=== PATIENT | female | born 1945 | race Caucasian/White ===

== ENCOUNTER 2020-03-12 09:14 | Outpatient (REF) | payer MEDICARE, SELFPAY ==
[2020-03-12 11:52] LABS: Anion Gap 14 (12-20); Blood Urea Nitrogen 16 mg/dL (9-16); Calcium 9.6 mg/dL (8.4-10.2); Carbon Dioxide 27 mmol/L (22-29); Chloride 103 mmol/L (96-108); Estimated Glomerular Filt Rate 52; Glucose Random 93 mg/dL (60-115); Potassium 3.8 mmol/l (3.3-5.1); Sodium 140 mmol/L (135-145)
== END 2020-03-12 09:15 | disposition home or self-care (01) ==
LOC: HO.HMGCLDS 09:14
PROVIDERS: PCP Internal Medicine; Visit Provider Internal Medicine
DX: N18.9 Chronic kidney disease, unspecified (principal)
CPT/HCPCS: 80048

== ENCOUNTER 2020-03-19 15:14 | Outpatient (REF) | payer MEDICARE, SELFPAY ==
[2020-03-19 17:16] LABS: Glucose Urine UA NEG (NEG); Leukocyte Esterase Urine 1+ (NEG); Nitrite Urine NEG (NEG); PH 5.5 (5.0-8.0); Specific Gravity - Urine 1.025 (1.005-1.025); Urine Blood NEG (NEG); Urine Ketones NEG (NEG); Urine Protein NEG (NEG-TRACE)
[2020-03-19 17:23] LABS: Appearance Urine CLEAR; Color Urine YELLOW
[2020-03-19 17:59] LABS: Bacteria Urine TRACE /LPF; RBC Urine 0-2 /HPF (0); Squamous Epithelial Cell Urine 1+ /LPF
== END 2020-03-19 15:15 | disposition home or self-care (01) ==
LOC: HO.HMGCLDS 15:14
PROVIDERS: PCP Internal Medicine; Visit Provider Internal Medicine
DX: I12.9 Hypertensive chronic kidney disease with stage 1 through stage 4 chronic kidney disease, or unspecified chronic kidney disease (principal); N18.9 Chronic kidney disease, unspecified; R35.0 Frequency of micturition
CPT/HCPCS: 81001; 81003

== ENCOUNTER 2020-03-27 07:29 | Outpatient (REF) | payer MEDICARE, SELFPAY ==
[2020-03-27 11:27] LABS: Hematocrit 42.8 % (37-47); Hemoglobin 13.8 g/dl (12.0-16.0); Mean Corpuscular HGB Conc 32.2 g/dl (31.0-35.0); Mean Corpuscular Hemoglobin 28.4 pg (27.0-33.0); Mean Corpuscular Volume 88.1 fL (80-98); Mean Platelet Volume 11.3 fL (9.4-12.3); Platelet Count 308 X10*3/uL (160-400); Red Blood Count 4.86 X10*6/uL (4.20-5.50); Red Cell Distribution Width 13.3 % (11.0-16.0); White Blood Count 6.3 X10*3/uL (4.8-10.8)
[2020-03-27 11:49] LABS: Glucose Urine UA NEG (NEG); Leukocyte Esterase Urine 1+ (NEG); Nitrite Urine NEG (NEG); Urine Blood TRACE (NEG); Urine Ketones NEG (NEG); Urine Protein NEG (NEG-TRACE)
[2020-03-27 11:51] LABS: Appearance Urine HAZY; Color Urine YELLOW
[2020-03-27 12:01] LABS: Alanine Aminotransferase 25 U/L (0-31); Albumin Level 4.3 g/dL (3.5-5.0); Alkaline Phosphatase 93 U/L (39-117); Anion Gap 15 (12-20); Aspartate Amino Transferase 29 U/L (5-31); Bilirubin Total 0.7 mg/dL (0.0-1.0); Blood Urea Nitrogen 21 mg/dL (9-16); Calcium 9.2 mg/dL (8.4-10.2); Carbon Dioxide 22 mmol/L (22-29); Chloride 108 mmol/L (96-108); Cholesterol 158 mg/dL; Estimated Glomerular Filt Rate 57; Glucose Fasting 81 mg/dL (60-99); HDL Cholesterol 58 mg/dL; LDL Cholesterol Calculated 87 mg/dl; Potassium 4.3 mmol/l (3.3-5.1); Sodium 141 mmol/L (135-145); Total Protein 7.1 g/dL (6.5-8.0); Triglycerides 69 mg/dL
[2020-03-27 12:10] LABS: Calcium Oxalate Crystals Urine 4+ /LPF; RBC Urine 0-2 /HPF (0); Squamous Epithelial Cell Urine 2+ /LPF
[2020-03-27 12:11] LABS: Thyroid Stimulating Hormone 1.65 uIU/mL (0.32-4.0)
[2020-03-27 12:13] LABS: Creatinine Urine 58.61 mg/dL; Microalbum/Creatinine Ratio Ur 15.3 ug/mg cr
== END 2020-03-27 07:30 | disposition home or self-care (01) ==
LOC: HO.HMGCLDS 07:29
PROVIDERS: PCP Internal Medicine; Visit Provider Internal Medicine
DX: E78.5 Hyperlipidemia, unspecified (principal); I10 Essential (primary) hypertension; E03.9 Hypothyroidism, unspecified; R73.9 Hyperglycemia, unspecified
CPT/HCPCS: 36415; 80053; 80061; 81001; 82043; 84443; 85027

== ENCOUNTER 2020-04-24 09:04 | Outpatient (REF) | payer MEDICARE, SELFPAY ==
--- NOTE | 2020-04-24 09:05 | XR_ITS ---
EXAMINATION: XR KNEE STANDING BILATERAL XR KNEE, RIGHT XR KNEE, LEFT CLINICAL INFORMATION: Knee pain COMPARISON: Left knee radiographs from 10/22/2019 TECHNIQUE: AP standing view both knees Left knee, 2 views (sunrise and lateral views) Right knee, 2 views FINDINGS: AP standing view The right knee joint spaces are maintained. At the left knee, there is moderate loss of the medial joint space with subarticular sclerosis and marginal osteophytosis. Left knee: The additional views of the left knee show no fracture, malalignment or joint effusion. Small osteophytes and subchondral cystic changes of the mildly degenerated patellofemoral compartment. Minimal marginal osteophyte formation at the lateral compartment. No new findings compared to 10/22/2019. Right knee: Small osteophytes at the mildly degenerated patellofemoral compartment. Negligible osteophyte formation at the medial tibiofemoral compartment. The medial and lateral tibiofemoral joint spaces are maintained. XR/XR knee RT 2V IMPRESSION: * Tricompartmental osteoarthritis of left knee. The arthritis is worst (moderate in degree) at the medial compartment, possibly secondary to, or exacerbated by, an old medial meniscus tear. * At the right knee, there is mild osteoarthritis of the patellofemoral and medial tibiofemoral compartments.
--- NOTE | 2020-04-24 09:05 | XR_ITS ---
EXAMINATION: XR KNEE STANDING BILATERAL XR KNEE, RIGHT XR KNEE, LEFT CLINICAL INFORMATION: Knee pain COMPARISON: Left knee radiographs from 10/22/2019 TECHNIQUE: AP standing view both knees Left knee, 2 views (sunrise and lateral views) Right knee, 2 views FINDINGS: AP standing view The right knee joint spaces are maintained. At the left knee, there is moderate loss of the medial joint space with subarticular sclerosis and marginal osteophytosis. Left knee: The additional views of the left knee show no fracture, malalignment or joint effusion. Small osteophytes and subchondral cystic changes of the mildly degenerated patellofemoral compartment. Minimal marginal osteophyte formation at the lateral compartment. No new findings compared to 10/22/2019. Right knee: Small osteophytes at the mildly degenerated patellofemoral compartment. Negligible osteophyte formation at the medial tibiofemoral compartment. The medial and lateral tibiofemoral joint spaces are maintained. XR/XR knee LT 2V IMPRESSION: * Tricompartmental osteoarthritis of left knee. The arthritis is worst (moderate in degree) at the medial compartment, possibly secondary to, or exacerbated by, an old medial meniscus tear. * At the right knee, there is mild osteoarthritis of the patellofemoral and medial tibiofemoral compartments.
--- NOTE | 2020-04-24 09:05 | XR_ITS ---
EXAMINATION: XR KNEE STANDING BILATERAL XR KNEE, RIGHT XR KNEE, LEFT CLINICAL INFORMATION: Knee pain COMPARISON: Left knee radiographs from 10/22/2019 TECHNIQUE: AP standing view both knees Left knee, 2 views (sunrise and lateral views) Right knee, 2 views FINDINGS: AP standing view The right knee joint spaces are maintained. At the left knee, there is moderate loss of the medial joint space with subarticular sclerosis and marginal osteophytosis. Left knee: The additional views of the left knee show no fracture, malalignment or joint effusion. Small osteophytes and subchondral cystic changes of the mildly degenerated patellofemoral compartment. Minimal marginal osteophyte formation at the lateral compartment. No new findings compared to 10/22/2019. Right knee: Small osteophytes at the mildly degenerated patellofemoral compartment. Negligible osteophyte formation at the medial tibiofemoral compartment. The medial and lateral tibiofemoral joint spaces are maintained. XR/XR knee standing BI IMPRESSION: * Tricompartmental osteoarthritis of left knee. The arthritis is worst (moderate in degree) at the medial compartment, possibly secondary to, or exacerbated by, an old medial meniscus tear. * At the right knee, there is mild osteoarthritis of the patellofemoral and medial tibiofemoral compartments.
== END 2020-04-24 09:05 | disposition home or self-care (01) ==
LOC: HO.HOSX 09:04
PROVIDERS: PCP Internal Medicine; Referring Provider Internal Medicine; Visit Provider Orthopaedic Surgery
DX: M17.12 Unilateral primary osteoarthritis, left knee (principal); M25.561 Pain in right knee
CPT/HCPCS: 20610; 73560; 73565; 99202; J1100

== ENCOUNTER 2020-07-28 08:47 | Outpatient (REF) | payer MEDICARE, SELFPAY ==
[2020-07-28 11:09] LABS: MANUAL DIFF FLAG NO
[2020-07-28 11:16] LABS: Basophils Absolute Auto 0.1 X10*3/uL (0.0-0.2); Basophils Percent Auto 0.8 % (0-2); Eosinophils Absolute Auto 0.3 X10*3/uL (0.0-0.4); Eosinophils Percent Auto 4.3 % (0-4); Hematocrit 41.4 % (37-47); Hemoglobin 13.2 g/dl (12.0-16.0); Imm Gran Abs Auto 0.02 X10*3/uL (0.00-0.03); Imm Gran Pct Auto 0.3 % (0.0-0.4); Lymphocytes Absolute Auto 1.4 X10*3/uL (1.2-4.9); Lymphocytes Percent Auto 21.8 % (20-40); Mean Corpuscular HGB Conc 31.9 g/dl (31.0-35.0); Mean Corpuscular Hemoglobin 28.1 pg (27.0-33.0); Mean Corpuscular Volume 88.3 fL (80-98); Mean Platelet Volume 10.7 fL (9.4-12.3); Monocytes Absolute Auto 0.3 X10*3/uL (0.1-1.2); Neutrophils Absolute Auto 4.4 X10*3/uL (2.0-8.3); Neutrophils Percent Auto 67.8 % (45-73); Platelet Count 286 X10*3/uL (160-400); Red Blood Count 4.69 X10*6/uL (4.20-5.50); Red Cell Distribution Width 13.9 % (11.0-16.0); White Blood Count 6.6 X10*3/uL (4.8-10.8)
[2020-07-28 11:26] LABS: Glucose Urine UA NEG (NEG); Leukocyte Esterase Urine 1+ (NEG); Nitrite Urine NEG (NEG); Specific Gravity - Urine 1.015 (1.005-1.025); UACC Culture Trigger YES; Urine Blood NEG (NEG); Urine Ketones NEG (NEG); Urine Protein NEG (NEG-TRACE)
[2020-07-28 11:28] LABS: Appearance Urine HAZY; Color Urine YELLOW
[2020-07-28 11:43] LABS: Albumin Level 4.2 g/dL (3.5-5.0); Anion Gap 13 (12-20); Blood Urea Nitrogen 25 mg/dL (9-16); Calcium 9.7 mg/dL (8.4-10.2); Carbon Dioxide 30 mmol/L (22-29); Chloride 103 mmol/L (96-108); Estimated Glomerular Filt Rate 50; Iron 81 mcg/dL (30-160); Magnesium 2.3 mg/dL (1.6-2.6); Percent Iron Saturation 24 % (15-50); Phosphorus 2.8 mg/dL (2.7-4.5); Potassium 3.5 mmol/L (3.3-5.1); Sodium 142 mmol/L (135-145); Total Iron Binding Capacity 343 mcg/dL (228-428); Unsaturated Iron Binding 262 ug/dL; Uric Acid 8.8 mg/dL (2.4-5.7)
[2020-07-28 11:46] LABS: Bacteria Urine TRACE /LPF; Squamous Epithelial Cell Urine 2+ /LPF; UACC CULT YES
[2020-07-28 11:47] LABS: Renal w Reflex-LAB USE ONLY Order Verified
[2020-07-28 11:58] LABS: Renal w Reflex Lab Use Only Order verified
[2020-07-28 12:07] LABS: Vitamin D 25-OH Total 31.5 ng/mL (>30)
[2020-07-28 12:08] LABS: Creatinine Urine 88.62 mg/dL; Microalbum/Creatinine Ratio Ur 6.7 ug/mg cr; Total Protein Urine Random < 7 mg/dL (<12)
[2020-07-28 12:37] LABS: Ferritin 107 ng/mL (10-250)
[2020-07-29 16:16] LABS: Calcium (PTHI) 10.2 mg/dL (8.6-10.4); PTHI 47 pg/mL (14-64)
== END 2020-07-28 08:48 | disposition home or self-care (01) ==
LOC: HO.HMGCLDS 08:47
PROVIDERS: PCP Internal Medicine; Visit Provider Internal Medicine Nephrology
DX: I12.9 Hypertensive chronic kidney disease with stage 1 through stage 4 chronic kidney disease, or unspecified chronic kidney disease (principal); N18.9 Chronic kidney disease, unspecified; N28.1 Cyst of kidney, acquired
CPT/HCPCS: 36415; 80051; 81001; 82040; 82043; 82306; 82310; 82565; 82728; 83540; 83735; 83970; 84100; 84156; 84520; 84550; 85025; 87086

== ENCOUNTER → 2020-08-18 08:24 | Outpatient (BNVA) | payer MEDICARE, SELFPAY | PROVIDERS: Visit Provider Orthopaedic Surgery | DX: M17.12 Unilateral primary osteoarthritis, left knee (principal) | CPT/HCPCS: 20610; 99212; J1100 ==

== ENCOUNTER 2020-12-05 07:24 | Outpatient (REF) | payer MEDICARE, SELFPAY ==
[2020-12-05 11:24] LABS: Glucose Urine UA NEG (NEG); Leukocyte Esterase Urine 2+ (NEG); Nitrite Urine NEG (NEG); Urine Blood TRACE (NEG); Urine Ketones NEG (NEG); Urine Protein NEG (NEG-TRACE)
[2020-12-05 11:26] LABS: Appearance Urine HAZY; Color Urine YELLOW
[2020-12-05 11:38] LABS: Bacteria Urine TRACE /LPF; RBC Urine 0-2 /HPF (0); Squamous Epithelial Cell Urine 2+ /LPF
[2020-12-05 11:40] LABS: Hematocrit 39.4 % (37-47); Hemoglobin 12.6 g/dl (12.0-16.0); Mean Corpuscular Hemoglobin 27.8 pg (27.0-33.0); Mean Platelet Volume 10.7 fL (9.4-12.3); Platelet Count 350 X10*3/uL (160-400); Red Blood Count 4.53 X10*6/uL (4.20-5.50); White Blood Count 6.5 X10*3/uL (4.8-10.8)
[2020-12-05 12:11] LABS: Alanine Aminotransferase 12 U/L (0-31); Alkaline Phosphatase 70 U/L (39-117); Anion Gap 13 (12-20); Aspartate Amino Transferase 22 U/L (5-31); Bilirubin Total 0.8 mg/dL (0.0-1.0); Blood Urea Nitrogen 24 mg/dL (9-16); Calcium 9.7 mg/dL (8.4-10.2); Carbon Dioxide 26 mmol/L (22-29); Chloride 106 mmol/L (96-108); Cholesterol 173 mg/dL; Estimated Glomerular Filt Rate 53; Glucose Fasting 98 mg/dL (60-99); HDL Cholesterol 52 mg/dL; LDL Cholesterol Calculated 94 mg/dl; Potassium 3.4 mmol/L (3.3-5.1); Sodium 142 mmol/L (135-145); Total Protein 6.9 g/dL (6.5-8.0); Triglycerides 137 mg/dL
[2020-12-05 12:19] LABS: TSH reflex Free T4 1.72 uIU/mL (0.32-4.0)
== END 2020-12-05 07:25 | disposition home or self-care (01) ==
LOC: HO.HMGCLDS 07:24
PROVIDERS: PCP Internal Medicine; Visit Provider Internal Medicine
DX: I12.9 Hypertensive chronic kidney disease with stage 1 through stage 4 chronic kidney disease, or unspecified chronic kidney disease (principal); N18.9 Chronic kidney disease, unspecified; E78.5 Hyperlipidemia, unspecified
CPT/HCPCS: 36415; 80053; 80061; 81001; 84443; 85027

== ENCOUNTER 2021-01-06 15:02 | Outpatient (REF) | payer MEDICARE, SELFPAY ==
[2021-01-06 17:18] LABS: Anion Gap 15 (12-20); Blood Urea Nitrogen 27 mg/dL (9-16); Calcium 10.3 mg/dL (8.4-10.2); Carbon Dioxide 25 mmol/L (22-29); Chloride 107 mmol/L (96-108); Estimated Glomerular Filt Rate 43; Glucose Random 124 mg/dL (60-115); Potassium 3.7 mmol/L (3.3-5.1); Sodium 143 mmol/L (135-145)
== END 2021-01-06 15:03 | disposition home or self-care (01) ==
LOC: HO.HMGCLDS 15:02
PROVIDERS: PCP Internal Medicine; Visit Provider Internal Medicine
DX: E78.5 Hyperlipidemia, unspecified (principal); I10 Essential (primary) hypertension
CPT/HCPCS: 36415; 80048

== ENCOUNTER 2021-01-09 08:06 | Outpatient (REF) | payer MEDICARE, SELFPAY ==
[2021-01-09 12:34] LABS: Vitamin D 25-OH Total 36.2 ng/mL (>30)
[2021-01-12 13:12] LABS: Calcium (PTHI) 10.1 mg/dL (8.6-10.4); PTHI 62 pg/mL (14-64)
[2021-01-12 19:12] LABS: Calcium, Ionized 5.2 mg/dL (4.8-5.6)
== END 2021-01-09 08:07 | disposition home or self-care (01) ==
LOC: HO.HMGCLDS 08:06
PROVIDERS: PCP Internal Medicine; Visit Provider Nurse Practitioner Family
DX: E83.52 Hypercalcemia (principal)
CPT/HCPCS: 36415; 82306; 82330; 83970

== ENCOUNTER → 2021-05-11 08:10 | Outpatient (BNVA) | payer MEDICARE, SELFPAY | PROVIDERS: Visit Provider Orthopaedic Surgery | DX: M17.12 Unilateral primary osteoarthritis, left knee (principal) | CPT/HCPCS: 99212 ==

== ENCOUNTER 2021-06-06 07:22 | Outpatient (REF) | payer MEDICARE, SELFPAY ==
[2021-06-06 11:15] LABS: Hemoglobin 13.4 g/dl (12.0-16.0); Mean Corpuscular HGB Conc 31.9 g/dl (31.0-35.0); Mean Corpuscular Volume 87.9 fL (80.0-98.0); Mean Platelet Volume 11.1 fL (9.4-12.3); Platelet Count 307 X10*3/uL (160-400); Red Blood Count 4.78 X10*6/uL (4.20-5.50); White Blood Count 7.3 X10*3/uL (4.8-10.8)
[2021-06-06 11:16] LABS: Appearance Urine CLOUDY; Color Urine YELLOW; Glucose Urine UA NEG (NEG); Leukocyte Esterase Urine 2+ (NEG); Nitrite Urine NEG (NEG); PH 5.5 (5.0-8.0); Specific Gravity - Urine 1.025 (1.005-1.025); Urine Blood TRACE (NEG); Urine Ketones NEG (NEG); Urine Protein NEG (NEG-TRACE)
[2021-06-06 11:32] LABS: Amorphous Sediment Urine 2+ /LPF; Bacteria Urine 1+ /LPF; RBC Urine 0-2 /HPF (0); Squamous Epithelial Cell Urine 4+ /LPF
[2021-06-06 11:37] LABS: Alanine Aminotransferase 16 U/L (0-31); Albumin Level 4.1 g/dL (3.5-5.0); Alkaline Phosphatase 61 U/L (39-117); Anion Gap 14 (12-20); Aspartate Amino Transferase 21 U/L (5-31); Bilirubin Total 0.4 mg/dL (0.0-1.0); Blood Urea Nitrogen 22 mg/dL (9-16); Carbon Dioxide 26 mmol/L (22-29); Chloride 105 mmol/L (96-108); Cholesterol 154 mg/dL; Estimated Glomerular Filt Rate 56; Glucose Fasting 90 mg/dL (60-99); HDL Cholesterol 46 mg/dL; LDL Cholesterol Calculated 89 mg/dl; Potassium 3.7 mmol/L (3.3-5.1); Sodium 141 mmol/L (135-145); Total Protein 6.8 g/dL (6.5-8.0); Triglycerides 98 mg/dL
[2021-06-06 12:02] LABS: TSH reflex Free T4 1.69 uIU/mL (0.32-4.0)
== END 2021-06-06 07:23 | disposition home or self-care (01) ==
LOC: HO.HMGCLDS 07:22
PROVIDERS: PCP Internal Medicine; Visit Provider Internal Medicine
DX: I12.9 Hypertensive chronic kidney disease with stage 1 through stage 4 chronic kidney disease, or unspecified chronic kidney disease (principal); N18.9 Chronic kidney disease, unspecified; R35.0 Frequency of micturition; E78.5 Hyperlipidemia, unspecified
CPT/HCPCS: 36415; 80053; 80061; 81001; 84443; 85027

== ENCOUNTER 2021-11-30 07:30 | Outpatient (REF) | payer MEDICARE, SELFPAY ==
[2021-11-30 11:34] LABS: Estimated Average Glucose 111 mg/dL; Hemoglobin A1c % 5.5 %
[2021-11-30 11:37] LABS: Alanine Aminotransferase 18 U/L (0-31); Albumin Level 4.2 g/dL (3.5-5.0); Alkaline Phosphatase 66 U/L (39-117); Anion Gap 12 (12-20); Aspartate Amino Transferase 22 U/L (5-31); Bilirubin Total 0.5 mg/dL (0.0-1.0); Blood Urea Nitrogen 24 mg/dL (9-16); Calcium 9.4 mg/dL (8.4-10.2); Carbon Dioxide 28 mmol/L (22-29); Chloride 106 mmol/L (96-108); Estimated Glomerular Filt Rate 55; Glucose Fasting 99 mg/dL (60-99); Potassium 3.7 mmol/L (3.3-5.1); Sodium 142 mmol/L (135-145); Total Protein 6.8 g/dL (6.5-8.0)
[2021-11-30 12:02] LABS: TSH reflex Free T4 2.14 uIU/mL (0.32-4.0)
== END 2021-11-30 07:31 | disposition home or self-care (01) ==
LOC: HO.HMGCLDS 07:30
PROVIDERS: Visit Provider Internal Medicine
DX: R73.9 Hyperglycemia, unspecified (principal); I12.9 Hypertensive chronic kidney disease with stage 1 through stage 4 chronic kidney disease, or unspecified chronic kidney disease; N18.9 Chronic kidney disease, unspecified
CPT/HCPCS: 36415; 80053; 83036; 84443

== ENCOUNTER 2022-02-02 10:39 | Outpatient (REF) | payer MEDICARE, SELFPAY ==
[2022-02-02 14:47] LABS: TSH reflex Free T4 0.66 uIU/mL (0.32-4.0)
== END 2022-02-02 10:40 | disposition home or self-care (01) ==
LOC: HO.HMGCLDS 10:39
PROVIDERS: PCP Internal Medicine; Visit Provider Internal Medicine
DX: E03.9 Hypothyroidism, unspecified (principal)
CPT/HCPCS: 36415; 84443

== ENCOUNTER 2022-06-03 07:31 | Outpatient (REF) | payer MEDICARE, SELFPAY ==
[2022-06-03 11:17] LABS: Appearance Urine Cloudy; Color Urine Yellow; Glucose Urine UA Negative (Negative); Leukocyte Esterase Urine Moderate (2+) (Negative); Nitrite Urine Negative (Negative); Specific Gravity - Urine 1.015 (1.005-1.025); UMIC TRIGGER UA YES; Urine Blood Negative (Negative); Urine Ketones Negative (Negative); Urine Protein Negative (Neg-Trace)
[2022-06-03 11:19] LABS: MANUAL DIFF FLAG NO
[2022-06-03 11:20] LABS: Bacteria Urine Trace (None Seen); Hyaline Casts Urine 0-2 /LPF (0-2); Squamous Epithelial Cell Urine >20 /HPF (0-2)
[2022-06-03 11:23] LABS: Basophils Percent Auto 0.5 % (0-2); Eosinophils Absolute Auto 0.2 X10*3/uL (0.0-0.4); Eosinophils Percent Auto 3.2 % (0-4); Hematocrit 39.1 % (37.0-47.0); Hemoglobin 12.8 g/dl (12.0-16.0); Imm Gran Abs Auto 0.03 X10*3/uL (0.00-0.03); Imm Gran Pct Auto 0.4 % (0.0-0.4); Lymphocytes Absolute Auto 1.7 X10*3/uL (1.2-4.9); Lymphocytes Percent Auto 22.9 % (20-40); Mean Corpuscular HGB Conc 32.7 g/dl (31.0-35.0); Mean Corpuscular Volume 85.6 fL (80.0-98.0); Mean Platelet Volume 10.3 fL (9.4-12.3); Monocytes Absolute Auto 0.5 X10*3/uL (0.1-1.2); Monocytes Percent Auto 6.1 % (2-11); Neutrophils Percent Auto 66.9 % (45-73); Platelet Count 315 X10*3/uL (160-400); Red Blood Count 4.57 X10*6/uL (4.20-5.50); Red Cell Distribution Width 13.9 % (11.0-16.0); White Blood Count 7.4 X10*3/uL (4.8-10.8)
[2022-06-03 11:45] LABS: Alanine Aminotransferase 12 U/L (0-31); Albumin Level 3.9 g/dL (3.5-5.0); Alkaline Phosphatase 69 U/L (39-117); Anion Gap 10 (12-20); Aspartate Amino Transferase 20 U/L (5-31); Bilirubin Total 0.5 mg/dL (0.0-1.0); Blood Urea Nitrogen 20 mg/dL (9-16); Calcium 9.7 mg/dL (8.4-10.2); Carbon Dioxide 31 mmol/L (22-29); Chloride 103 mmol/L (96-108); Cholesterol 180 mg/dL; Estimated Glomerular Filt Rate > 60; Glucose Fasting 97 mg/dL (60-99); HDL Cholesterol 52 mg/dL; LDL Cholesterol Calculated 105 mg/dl; Potassium 3.4 mmol/L (3.3-5.1); Sodium 141 mmol/L (135-145); Total Protein 6.6 g/dL (6.5-8.0); Triglycerides 118 mg/dL
[2022-06-03 12:04] LABS: TSH reflex Free T4 1.94 uIU/mL (0.32-4.0)
== END 2022-06-03 07:32 | disposition home or self-care (01) ==
LOC: HO.HMGCLDS 07:31
PROVIDERS: PCP Internal Medicine; Visit Provider Internal Medicine
DX: E78.5 Hyperlipidemia, unspecified (principal); I10 Essential (primary) hypertension
CPT/HCPCS: 36415; 80053; 80061; 81001; 84443; 85025

== ENCOUNTER 2022-06-04 12:16 | Outpatient (REF) | payer MEDICARE, SELFPAY ==
[2022-06-04 14:21] LABS: Appearance Urine Clear; Color Urine Yellow; Glucose Urine UA Negative (Negative); Leukocyte Esterase Urine Negative (Negative); Nitrite Urine Negative (Negative); Specific Gravity - Urine 1.015 (1.005-1.025); Urine Blood Negative (Negative); Urine Ketones Negative (Negative); Urine Protein Negative (Neg-Trace)
== END 2022-06-04 12:17 | disposition home or self-care (01) ==
LOC: HO.HMGCLDS 12:16
PROVIDERS: PCP Internal Medicine; Visit Provider Internal Medicine
DX: R82.71 Bacteriuria (principal); I12.9 Hypertensive chronic kidney disease with stage 1 through stage 4 chronic kidney disease, or unspecified chronic kidney disease; N18.9 Chronic kidney disease, unspecified; R35.0 Frequency of micturition
CPT/HCPCS: 81003; 87086

== ENCOUNTER 2022-09-29 10:41 | Outpatient (REF) | payer MEDICARE, SELFPAY | END 2022-09-29 10:42 | disposition home or self-care (01) | LOC: HO.LNP 10:41 | PROVIDERS: PCP Internal Medicine; Visit Provider Surgery | DX: L72.0 Epidermal cyst (principal) | CPT/HCPCS: 11403; 11603; 88304; 88305; 99202 ==

== ENCOUNTER → 2022-10-13 13:07 | Outpatient (BNVA) | payer MEDICARE, SELFPAY | PROVIDERS: PCP Internal Medicine; Visit Provider Surgery | DX: Z48.3 Aftercare following surgery for neoplasm (principal); C44.90 Unspecified malignant neoplasm of skin, unspecified | CPT/HCPCS: 99212 ==

== ENCOUNTER 2022-12-07 06:28 | Outpatient (REF) | payer MEDICARE, SELFPAY ==
[2022-12-07 11:12] LABS: MANUAL DIFF FLAG NO
[2022-12-07 12:01] LABS: Basophils Absolute Auto 0.1 X10*3/uL (0.0-0.2); Basophils Percent Auto 0.7 % (0-2); Eosinophils Absolute Auto 0.3 X10*3/uL (0.0-0.4); Eosinophils Percent Auto 3.4 % (0-4); Hematocrit 39.1 % (37.0-47.0); Hemoglobin 12.4 g/dl (12.0-16.0); Imm Gran Abs Auto 0.04 X10*3/uL (0.00-0.03); Imm Gran Pct Auto 0.5 % (0.0-0.4); Lymphocytes Absolute Auto 1.8 X10*3/uL (1.2-4.9); Lymphocytes Percent Auto 25.1 % (20-40); Mean Corpuscular HGB Conc 31.7 g/dl (31.0-35.0); Mean Corpuscular Hemoglobin 27.8 pg (27.0-33.0); Mean Corpuscular Volume 87.7 fL (80.0-98.0); Mean Platelet Volume 10.5 fL (9.4-12.3); Monocytes Absolute Auto 0.6 X10*3/uL (0.1-1.2); Monocytes Percent Auto 7.8 % (2-11); Neutrophils Absolute Auto 4.6 x10*3/uL (2.0-8.3); Neutrophils Percent Auto 62.5 % (45-73); Platelet Count 331 X10*3/uL (160-400); Red Blood Count 4.46 X10*6/uL (4.20-5.50); Red Cell Distribution Width 14.3 % (11.0-16.0); White Blood Count 7.3 X10*3/uL (4.8-10.8)
[2022-12-07 13:09] LABS: Alanine Aminotransferase 22 U/L (0-31); Albumin Level 3.8 g/dL (3.5-5.0); Alkaline Phosphatase 77 U/L (39-117); Anion Gap 9 (12-20); Aspartate Amino Transferase 30 U/L (5-31); Bilirubin Total 0.5 mg/dL (0.0-1.0); Blood Urea Nitrogen 22 mg/dL (9-16); Calcium 10.2 mg/dL (8.4-10.2); Carbon Dioxide 29 mmol/L (22-29); Chloride 106 mmol/L (96-108); Cholesterol 165 mg/dL; Estimated Glomerular Filt Rate > 60; Glucose Fasting 102 mg/dL (60-99); HDL Cholesterol 46 mg/dL; LDL Cholesterol Calculated 92 mg/dl; Potassium 3.3 mmol/L (3.3-5.1); Sodium 141 mmol/L (135-145); TSH reflex Free T4 2.44 uIU/mL (0.32-4.0); Total Protein 6.9 g/dL (6.5-8.0); Triglycerides 139 mg/dL
== END 2022-12-07 06:29 | disposition home or self-care (01) ==
LOC: HO.HMGCLDS 06:28
PROVIDERS: PCP Internal Medicine; Visit Provider Internal Medicine
DX: E03.9 Hypothyroidism, unspecified (principal); R73.9 Hyperglycemia, unspecified; I12.9 Hypertensive chronic kidney disease with stage 1 through stage 4 chronic kidney disease, or unspecified chronic kidney disease; N18.9 Chronic kidney disease, unspecified
CPT/HCPCS: 36415; 80053; 80061; 84443; 85025

== ENCOUNTER 2022-12-13 11:43 | Outpatient (AMB) | payer MEDICARE, SELFPAY ==
[2022-12-13 12:08] VITALS: BP 128/84; PULSE 82; O2SAT 96; BMI 32.9
--- NOTE | 2022-12-13 12:08 | MHC.PC.OV ---
Vital Signs 12/13/22 12:08 Height 5 ft 2 in Weight 180 lb BMI 32.9 BP 128/84 Blood Pressure Location Rt brachial Position Sitting Pulse 82 Pulse Source Pulse Oximeter Pulse Oximetry (%) 96 Oxygen Delivery Method Room Air Intake Visit Reasons: Annual Physical- insurance pays for PE Allergies amlodipine Allergy (Unknown, Verified 12/13/22 12:11) edema lisinopril Allergy (Unknown, Verified 12/13/22 12:11) Cough hydrochlorothiazide [Maxzide] Adverse Reaction (Intermediate, Verified 12/13/22 12:11) Urinary incontinence triamterene [Maxzide] Adverse Reaction (Unknown, Verified 12/13/22 12:11) urinary incontinence, increased urination Medication List - Last Reconciled 12/13/22 by Shruthi Patel MD estradiol 0.01%(0.1mg/gram) (Estrace) 1 g vaginal 3XW hydralazine 50 mg (2 x 25 mg) PO BID ketoconazole 2% 1 appl topical DAILY levothyroxine 75 mcg PO QAM olmesartan-hydrochlorothiazide 40-25 mg 1 tab PO DAILY potassium chloride ER 10 mEq PO DAILY simvastatin 20 mg PO BEDTIME Tobacco use date assessed: 12/13/22 Fall risk assessment: No Falls in past year Last assessed Fall Risk: 12/13/22 Dental Screening Dental Screen Date: 12/13/22 Did you have a dental visit in the last 12 months?: Yes Did you have a dental problem in the last 6 months where you did not have access to dental care?: No Was dental information given to patient?: Patient has dentist HPI Annual Physical- insurance pays for PE HPI Details Patient presents for physical. Has been was diagnosed with metastatic lung cancer and is hospitalized at [facility]. Patient reports dyspnea on exertion when walking up the stairs working in the [employer] for the last month. Patient denies chest pain palpitations PND orthopnea pleurisy cough. [facility] Medical History Annual physical exam Chronic kidney disease (CKD) Epidermal cyst Hematuria, microscopic Hyperglycemia Hyperlipidemia Hypertension Hypothyroidism Knee pain Renal cyst Skin cancer Thyroid nodule Urinary frequency Surgical History H/O colonoscopy History of excision of epidermal inclusion cyst (~09/29/22) Family History Father Unknown family medical history Mother Unknown family medical history Social History Housing: House Alcohol intake: never Patient Tobacco Use Status: Never used Tobacco e-Cigarette/Vaping Use: Never Used Current occupational status: retired Current occupation: right handed Cognitive needs: No Hearing needs: No Vision needs: Yes Questionnaire Thrive Questionnaire Date Thrive assessed: 06/07/22 AUDIT C Alcohol Use Questionnaire (AUDIT-C) 1. How often do you have a drink containing alcohol?: Never 3. How often do you have six or more drinks on one occasion?: Never Total Score: 0 RENATO-7 AMB Questionnaire RENATO-7 Date RENATO - 7 assessed: 06/07/22 Source: Developed by Drs. Kamran Lowe, Manda Leslie, Issac Banks and colleagues, with an educational delaney from [employer]. Review of Systems Const All systems reviewed & are unremarkable except as noted in HPI and below Reports no additional complaints Eyes Reports no additional complaints Card Reports no additional complaints Resp Reports no additional complaints GI Reports no additional complaints Reports no additional complaints Physical exam (Primary Care) Vital Signs: Last Vital Signs Pulse 82 12/13/22 12:08 BP 128/84 12/13/22 12:08 Pulse Ox 96 12/13/22 12:08 Oxygen Delivery Method Room Air 12/13/22 12:08 BMI result Body Mass Index 32.9 Tobacco/Smoking Status: Tobacco use Status Tobacco use date assessed 12/13/22 12/13/22 12:13 Patient Tobacco Use Status Never used Tobacco 12/13/22 12:13 e-Cigarette/Vaping Use Never Used 12/13/22 12:13 Thrive Assessment: Date of Thrive Assessment Date Thrive assessed 06/07/22 12/13/22 12:13 Const General: no acute distress HENMT Head: Yes normal to inspection Ears: hearing grossly normal bilaterally Face and sinus: Yes normal facial exam Mouth: Normal oral and palatal mucosa present Throat: Yes posterior oropharynx normal Neck Neck: Yes no lymphadenopathy and Yes supple Resp Effort & Inspection: normal respiratory effort Auscultation: clear to auscultation bilaterally Cardio Rhythm: regular rhythm Heart sounds: S1 normal heart sound present and S2 normal heart sound present GI Inspection: Yes normal to inspection Palpation (GI): Soft to palpation Percussion: Yes normal to percussion Auscultation: normal bowel sounds Assessment and Plan Assessment & Plan (1) Anginal equivalent: Code(s): I20.8 - Other forms of angina pectoris Plan: EKG showed normal sinus rhythm left axis deviation no acute ST-T changes. Refer for nuclear stress test to rule out ischemia (2) WILLETT (dyspnea on exertion): Code(s): R06.09 - Other forms of dyspnea (3) Hypothyroidism: Code(s): E03.9 - Hypothyroidism, unspecified Plan: Continue levothyroxine (4) Hyperglycemia: Code(s): R73.9 - Hyperglycemia, unspecified Plan: Continue ADA diet (5) Hyperlipidemia: Code(s): E78.5 - Hyperlipidemia, unspecified Plan: Continue statin (6) Hypertension: Comment: f/u nephrology Code(s): I10 - Essential (primary) hypertension Plan: Continue current medications. At KCl 10 mEq for borderline hypokalemia and repeat basic metabolic panel in 2 weeks Orders: Orders CA stress test Today E03.9 - Hypothyroidism, unspecified, E78.5 - Hyperlipidemia, unspecified, I10 - Essential (primary) hypertension, I20.8 - Other forms of angina pectoris, R06.09 - Other forms of dyspnea, R73.9 - Hyperglycemia, unspecified NM cardiolite stress test Today I20.8 - Other forms of angina pectoris, R06.09 - Other forms of dyspnea Basic Metabolic Panel 2 Weeks E87.6 - Hypokalemia Medications: New potassium chloride ER 10 mEq PO DAILY 90 tabs 3RF Coding Level of Care Code Est Pt Prev Care >65y(45867) Diagnoses Anginal equivalent I20.8 WILLETT (dyspnea on exertion) R06.09 Hypothyroidism E03.9 Hyperglycemia R73.9 Hyperlipidemia E78.5 Hypertension I10
== END 2022-12-13 13:13 | disposition home or self-care (01) ==
PROVIDERS: Visit Provider Internal Medicine
DX: Z00.00 Encounter for general adult medical examination without abnormal findings (principal); I20.8 Other forms of angina pectoris; E03.9 Hypothyroidism, unspecified; I10 Essential (primary) hypertension; R06.09 Other forms of dyspnea; R73.9 Hyperglycemia, unspecified; E78.5 Hyperlipidemia, unspecified
CPT/HCPCS: 99397

== ENCOUNTER 2023-01-07 08:47 | Outpatient (REF) | payer MEDICARE, SELFPAY ==
--- NOTE | ~2023-01-07 | XR_ITS ---
EXAMINATION: XR AP STANDING VIEW BOTH KNEES. XR KNEE, LEFT CLINICAL INFORMATION: Left knee pain COMPARISON: Radiographs 04/24/2020 TECHNIQUE: AP standing view of both knees. Lateral and sunrise views of the left knee. FINDINGS: Medial compartment narrowing of the left knee with marginal osteophytes, slightly progressed from previous. Small marginal osteophytes in the patellofemoral compartment. Trace joint effusion. No acute osseous abnormality. Minimal narrowing of the medial compartment of the right knee. XR/XR knee standing BI IMPRESSION: Moderate-severe medial compartment and mild patellofemoral compartment osteoarthritis of the left knee, slightly progressed from previous. Trace joint effusion.
--- NOTE | ~2023-01-07 | XR_ITS ---
EXAMINATION: XR AP STANDING VIEW BOTH KNEES. XR KNEE, LEFT CLINICAL INFORMATION: Left knee pain COMPARISON: Radiographs 04/24/2020 TECHNIQUE: AP standing view of both knees. Lateral and sunrise views of the left knee. FINDINGS: Medial compartment narrowing of the left knee with marginal osteophytes, slightly progressed from previous. Small marginal osteophytes in the patellofemoral compartment. Trace joint effusion. No acute osseous abnormality. Minimal narrowing of the medial compartment of the right knee. XR/XR knee LT 2V IMPRESSION: Moderate-severe medial compartment and mild patellofemoral compartment osteoarthritis of the left knee, slightly progressed from previous. Trace joint effusion.
== END 2023-01-07 08:48 | disposition home or self-care (01) ==
LOC: HO.HOSX 08:47
PROVIDERS: Visit Provider Orthopaedic Surgery
DX: M17.12 Unilateral primary osteoarthritis, left knee (principal)
CPT/HCPCS: 73560; 73565; 99212

== ENCOUNTER 2023-01-07 11:21 | Outpatient (AMB) | payer MEDICARE, SELFPAY ==
--- NOTE | 2023-01-07 11:26 | MHC.OFFVIS ---
Intake Vital Signs 01/07/23 11:37 Height 5 ft 2 in Weight 180 lb BMI 32.9 Intake Visit Reasons: OV-left knee- discuss surgery? Intake Note: ?Mana presents today for a follow up of her left knee OA, She had an injection done on 08/18/2020. Patient reports that she would like to discuss possible surgery. Allergies amlodipine Allergy (Unknown, Verified 01/07/23 11:27) edema lisinopril Allergy (Unknown, Verified 01/07/23 11:27) Cough hydrochlorothiazide [Maxzide] Adverse Reaction (Intermediate, Verified 01/07/23 11:27) Urinary incontinence triamterene [Maxzide] Adverse Reaction (Unknown, Verified 01/07/23 11:27) urinary incontinence, increased urination HPI OV-left knee- discuss surgery? HPI Details Mona is a 77 year old woman who returns to discuss her left knee OA. She complains of worsening pain in her left knee with activity. She says she is somewhat limited in her activities, walking is easier for her on flat ground but prolonged walking causes her increased pain the next day. She says she can walk ~2000 steps in a day without too much pain. She says she does not often leave her home due to her pain. She has a hx of steroid injections, with mixed relief. Her last was on 08/18/20. She has some stressors at home surrounding her family, and is unsure if she is in a good place to proceed with surgery at this time. She reports having an allergic reaction of some sort to her last steroid injection and does not want more today either. [facility] Medical History Annual physical exam Chronic kidney disease (CKD) Epidermal cyst Hematuria, microscopic Hyperglycemia Hyperlipidemia Hypertension Hypothyroidism Knee pain Renal cyst Skin cancer Thyroid nodule Urinary frequency Surgical History H/O colonoscopy History of excision of epidermal inclusion cyst (~09/29/22) Family History Father Unknown family medical history Mother Unknown family medical history Social History Housing: House Alcohol intake: never Patient Tobacco Use Status: Never used Tobacco e-Cigarette/Vaping Use: Never Used Current occupational status: retired Current occupation: right handed Cognitive needs: No Hearing needs: No Vision needs: Yes Review of Systems Const All systems reviewed & are unremarkable except as noted in HPI and below Physical Exam Vital Signs: BMI result Body Mass Index 32.9 Const General: no acute distress, alert and awake Orientation/consciousness: patient oriented x3 HEENT Head: Yes normocephalic and Yes atraumatic Eyes EOM: EOMs intact bilaterally Resp Effort & Inspection: normal respiratory effort and able to speak in complete sentences Cardio Jugular venous distension: no JVD Skin General skin exam: turgor normal Rashes: no rashes Neuro General: patient oriented x3 Extrem Other: Left Knee: TTP MJL vasurs left knee + gait antalgia Psych Appearance: grossly normal Affect: normal affect Attitude: cooperative Results Reviewed Results Reviewed: I personally reviewed relevant radiographs. Loss of medial compartment joint space of the left knee c/w severe OA Assessment & Plan Assessment & Plan (1) Arthritis of left knee: Code(s): M17.12 - Unilateral primary osteoarthritis, left knee Plan: This is a 77 year old woman with severe left knee OA, primarily of the medial compartment. She has pain with daily activity, worse with prolonged ambulation or using stairs. She has failed conservative treatment options, feels limited in her ADLs, and that her QOL is diminished. I discussed her diagnosis and treatment options. I recommend a left TKA. I discussed the risks, benefits, and alternatives including, but not limited to, the risk of pain, infection, stiffness, need for further surgery as well as potential medical complications such as blood clots, pulmonary embolism and cardiac complications. I discussed the recovery timeline and process as well as the importance of PT. Mona has some stressors at home and would like to take time to consider surgery at this time. She thinks she would like to have surgery sometime next summer. Delilah will reach out to her. Plan Scribed for Rahat Lofton MD by Zay Espinoza, dental assistant medical assistant, on 01/07/23 at 11:45 AM, EST. Orders: Orders XR knee LT 2V 01/07/23 M25.569 - Pain in unspecified knee XR knee standing BI 01/07/23 M25.569 - Pain in unspecified knee Coding Level of Care Code Est Pt Level 4 (61701) Diagnoses Arthritis of left knee M17.12
[2023-01-07 11:37] VITALS: BMI 32.9
== END 2023-01-07 12:08 | disposition home or self-care (01) ==
PROVIDERS: PCP Internal Medicine; Visit Provider Orthopaedic Surgery
DX: M17.12 Unilateral primary osteoarthritis, left knee (principal)
CPT/HCPCS: 99214

== ENCOUNTER → 2023-01-28 09:49 | Outpatient (REF) | payer MEDICARE, SELFPAY ==
--- NOTE | ~2023-01-28 | NM_ITS ---
EXERCISE MYOCARDIAL PERFUSION STUDY INDICATION: Shortness of breath, assess for coronary disease and ischemia TECHNIQUE: The patient was brought in for an exercise perfusion study on 01/28/2023. Patient performed exercise as per Ayan protocol and was injected 25 mCi of sestamibi once target heart rate was achieved. Images were obtained using the SPECT gamma camera interlaced with the gating device. Images were obtained in supine position. Resting perfusion study was performed on 01/31/2023. Patient was administered 25 mCi of sestamibi intravenously at rest. Images were then obtained in supine position. Images were processed with the software and compared side to side in short axis, horizontal long axis and vertical long axis views. Total DLP 103mGy-cm. FINDINGS: Raw images were reviewed. The stress perfusion study showed no significant perfusion abnormality. Both uncorrected as well as CT attenuation corrected images were reviewed. The gated study shows normal LV systolic function with calculated LVEF of 71%. LV cavity is normal in size. The gated study shows normal wall thickening and contraction of segments. Resting study shows no significant perfusion abnormality. Gating at rest reveals normal wall motion with ejection fraction at 61%. The findings are consistent with no clear reversible or fixed perfusion defects. NM/NM cardiolite stress test IMPRESSION: 1. Myocardial perfusion imaging study shows normal myocardial perfusion. 2. Gated LVEF is 71% during stress and 61% during rest. 3. Transient ischemic dilatation not present. EKG component of the test reported separately.
--- NOTE | 2023-01-28 09:51 | CA_ITS ---
Acquisition Time: 2023-01-28 10:40:24 Total Exercise Time: 00:05:24 Test Indications: SOB Medications: SEE H Protocol: SURESH Max HR: 126 BPM 86% of Pred: 145 BPM Max BP: 174/098 mmHG Max Work Load: 7.0 METS Exercise stress test exercise 5 min 24 sec of Suresh protocol achieving 86% MPHR, with moderate SOB, no chest discomfort, with isolated PVCs, with normotensive response to exercise, without EKG changes A lot of artifact during exercise. Nuclear images pending. Test reviewed with Dr. Melvin. Referred By: Shruthi Patel Overread By: ASIYA MELVIN
== END ==
LOC: HO.CARD 09:49
PROVIDERS: PCP Internal Medicine; Visit Provider Internal Medicine
DX: R06.09 Other forms of dyspnea (principal); I20.8 Other forms of angina pectoris; I10 Essential (primary) hypertension
CPT/HCPCS: 78452; 93017; A9500

== ENCOUNTER → 2023-01-28 09:51 | Outpatient (BNV) | payer MEDICARE, SELFPAY | PROVIDERS: PCP Internal Medicine; Visit Provider Internal Medicine | DX: R06.02 Shortness of breath (principal) | CPT/HCPCS: 78452; 93016; 93018 ==

== ENCOUNTER 2023-06-16 10:51 | Outpatient (AMB) | payer MEDICARE, SELFPAY ==
--- NOTE | 2023-06-16 10:54 | A.OFFPC_ITS ---
Vital Signs 06/16/23 10:56 Height 5 ft 2 in Weight 177 lb BMI 32.4 BP 126/80 Blood Pressure Location Lt brachial Position Sitting Pulse 64 Pulse Source Pulse Oximeter Pulse Oximetry (%) 98 Oxygen Delivery Method Room Air Intake Visit Reasons: 6 month fu Intake Note: Pt is here today for 6 months follow up visit. Allergies amlodipine Allergy (Unknown, Verified 06/16/23 10:58) edema lisinopril Allergy (Unknown, Verified 06/16/23 10:58) Cough hydrochlorothiazide [Maxzide] Adverse Reaction (Intermediate, Verified 06/16/23 10:58) Urinary incontinence triamterene [Maxzide] Adverse Reaction (Unknown, Verified 06/16/23 10:58) urinary incontinence, increased urination Medication List - Last Reconciled 06/16/23 by Shruthi Patel MD estradiol 0.01%(0.1mg/gram) (Estrace) 1 g vaginal 3XW hydralazine 50 mg (2 x 25 mg) PO BID ketoconazole 2% 1 appl topical DAILY levothyroxine 75 mcg PO QAM olmesartan-hydrochlorothiazide 40-25 mg 1 tab PO DAILY potassium chloride ER 10 mEq PO DAILY simvastatin 20 mg PO BEDTIME Tobacco use date assessed: 06/16/23 Fall risk assessment: No Falls in past year Last assessed Fall Risk: 06/16/23 Dental Screening Dental Screen Date: 06/16/23 Did you have a dental visit in the last 12 months?: Yes Did you have a dental problem in the last 6 months where you did not have access to dental care?: No Was dental information given to patient?: Patient has dentist HPI 6 month fu HPI Details Patient presents for the follow-up on hypertension hypothyroidism and hyperlipidemia. She will have left knee arthroplasty in July. [facility] Medical History Annual physical exam Chronic kidney disease (CKD) Epidermal cyst Hematuria, microscopic Hyperglycemia Hyperlipidemia Hypertension Hypothyroidism Knee pain Renal cyst Skin cancer Thyroid nodule Urinary frequency Surgical History H/O colonoscopy History of excision of epidermal inclusion cyst (~09/29/22) Family History Father Unknown family medical history Mother Unknown family medical history Social History Housing: House Alcohol intake: never Patient Tobacco Use Status: Never used Tobacco e-Cigarette/Vaping Use: Never Used Current occupational status: retired Current occupation: right handed Cognitive needs: No Hearing needs: No Vision needs: Yes Questionnaire Thrive Questionnaire Date Thrive assessed: 06/07/22 AUDIT C Alcohol Use Questionnaire (AUDIT-C) 1. How often do you have a drink containing alcohol?: Monthly or less 2. How many drinks containing alcohol do you have on a typical day when you are drinking?: 1 or 2 3. How often do you have six or more drinks on one occasion?: Never Total Score: 1 RENATO-7 AMB Questionnaire RENATO-7 Date RENATO - 7 assessed: 06/07/22 Feeling nervous, anxious, or on edge: 0 = Not at all Not being able to stop or control worryin = Not at all Worrying too much about different things: 0 = Not at all Trouble relaxin = Not at all Being so restless that it is hard to sit still: 0 = Not at all Becoming easily annoyed or irritable: 0 = Not at all Feeling afraid as if something awful might happen: 0 = Not at all Total RENATO-7 score (0-4 normal; 5-9 mild; 10-14 moderate; 15-21 severe): 0 Source: Developed by Drs. Kamran Lowe, Manda Leslie, Issac Banks and colleagues, with an educational delaney from [employer]. Review of Systems Const All systems reviewed & are unremarkable except as noted in HPI and below Reports no additional complaints Eyes Reports no additional complaints ENT Reports no additional complaints Card Reports no additional complaints Resp Reports no additional complaints GI Reports no additional complaints Reports no additional complaints Physical exam (Primary Care) Vital Signs: Last Vital Signs Pulse 64 06/16/23 10:56 BP 126/80 06/16/23 10:56 Pulse Ox 98 06/16/23 10:56 Oxygen Delivery Method Room Air 06/16/23 10:56 BMI result Body Mass Index 32.4 Tobacco/Smoking Status: Tobacco use Status Tobacco use date assessed 06/16/23 06/16/23 10:59 Patient Tobacco Use Status Never used Tobacco 06/16/23 10:59 e-Cigarette/Vaping Use Never Used 06/16/23 10:55 Thrive Assessment: Date of Thrive Assessment Date Thrive assessed 06/07/22 06/16/23 10:55 Const General: no acute distress HENMT Head: Yes normal to inspection Ears: hearing grossly normal bilaterally Eyes General: appearance normal, both eyes and all related structures Resp Effort & Inspection: normal respiratory effort Auscultation: clear to auscultation bilaterally Cardio Rhythm: regular rhythm Heart sounds: S1 normal heart sound present and S2 normal heart sound present GI Inspection: Yes normal to inspection Assessment and Plan Assessment & Plan (1) Hyperglycemia: Code(s): R73.9 - Hyperglycemia, unspecified Plan: Continue ADA diet increase physical activity and weight loss discussed with the patient (2) Hypothyroidism: Code(s): E03.9 - Hypothyroidism, unspecified Plan: Continue levothyroxine (3) Hypertension: Comment: f/u nephrology Code(s): I10 - Essential (primary) hypertension Plan: Continue current medications (4) Chronic kidney disease (CKD): Comment: Stable renal function, follow-up with nephrology Code(s): N18.9 - Chronic kidney disease, unspecified Orders: Orders Comprehensive Met. Panel Today E03.9 - Hypothyroidism, unspecified, I10 - Es sential (primary) hypertension, N18.9 - Chronic kidney disease, unspecified, R73.9 - Hyperglycemia, unspecified TSH reflex Free T4 Today E03.9 - Hypothyroidism, unspecified, I10 - Essential (primary) hypertension, N18.9 - Chronic kidney disease, unspecified, R73.9 - Hyperglycemia, unspecified Comprehensive [place]. Panel Fast 6 Months E03.9 - Hypothyroidism, unspecified, I10 - Essential (primary) hypertension, R73.9 - Hyperglycemia, unspecified Complete Blood Count Auto Diff 6 Months E03.9 - Hypothyroidism, unspecified, I10 - Essential (primary) hypertension, R73.9 - Hyperglycemia, unspecified Lipid Panel 6 Months E03.9 - Hypothyroidism, unspecified, I10 - Essential (primary) hypertension, R73.9 - Hyperglycemia, unspecified Coding Level of Care Code Est Pt Level 3 (55799) Diagnoses Hyperglycemia R73.9 Hypothyroidism E03.9 Hypertension I10 Chronic kidney disease (CKD) N18.9
[2023-06-16 10:56] VITALS: BP 126/80; PULSE 64; O2SAT 98; BMI 32.4
== END 2023-06-16 13:36 | disposition home or self-care (01) ==
PROVIDERS: PCP Internal Medicine; Visit Provider Internal Medicine
DX: R73.9 Hyperglycemia, unspecified (principal); E03.9 Hypothyroidism, unspecified; I12.9 Hypertensive chronic kidney disease with stage 1 through stage 4 chronic kidney disease, or unspecified chronic kidney disease; N18.9 Chronic kidney disease, unspecified
CPT/HCPCS: 99213

== ENCOUNTER 2023-06-16 11:39 | Outpatient (REF) | payer MEDICARE, SELFPAY ==
[2023-06-16 13:55] LABS: Alanine Aminotransferase 19 U/L (0-31); Albumin Level 4.4 g/dL (3.5-5.0); Alkaline Phosphatase 62 U/L (39-117); Anion Gap 13 (12-20); Aspartate Amino Transferase 26 U/L (5-31); Bilirubin Total 0.5 mg/dL (0.0-1.0); Blood Urea Nitrogen 23 mg/dL (9-16); Calcium 10.8 mg/dL (8.4-10.2); Carbon Dioxide 29 mmol/L (22-29); Chloride 103 mmol/L (96-108); Estimated Glomerular Filt Rate 55; Glucose Random 81 mg/dL (60-115); Potassium 3.2 mmol/L (3.3-5.1); Sodium 142 mmol/L (135-145); Total Protein 7.8 g/dL (6.5-8.0)
[2023-06-16 13:58] LABS: TSH reflex Free T4 1.63 uIU/mL (0.32-4.0)
== END 2023-06-16 11:40 | disposition home or self-care (01) ==
LOC: HO.HMGCLDS 11:39
PROVIDERS: PCP Internal Medicine; Visit Provider Internal Medicine
DX: R73.9 Hyperglycemia, unspecified (principal); E03.9 Hypothyroidism, unspecified; I12.9 Hypertensive chronic kidney disease with stage 1 through stage 4 chronic kidney disease, or unspecified chronic kidney disease; N18.9 Chronic kidney disease, unspecified
CPT/HCPCS: 36415; 80053; 84443

== ENCOUNTER 2023-06-29 09:37 | Outpatient (AMB) | payer MEDICARE, SELFPAY ==
[2023-06-29 09:50] VITALS: BP 136/80; PULSE 54; BMI 32.9
--- NOTE | 2023-06-29 09:50 | A.OFFVIS_ITS ---
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 Accompanied by: Self / Same As Patient Allergies amlodipine Allergy (Unknown, Verified 06/29/23 09:51) edema lisinopril Allergy (Unknown, Verified 06/29/23 09:51) Cough hydrochlorothiazide [Maxzide] Adverse Reaction (Intermediate, Verified 06/29/23 09:51) Urinary incontinence triamterene [Maxzide] Adverse Reaction (Unknown, Verified 06/29/23 09:51) urinary incontinence, increased urination Medication List - Last Reconciled 06/29/23 by Issa Chen MD estradiol 0.01%(0.1mg/gram) (Estrace) 1 g vaginal 3XW hydralazine 50 mg (2 x 25 mg) PO BID ketoconazole 2% 1 appl topical DAILY levothyroxine 75 mcg PO QAM olmesartan-hydrochlorothiazide 40-25 mg 1 tab PO DAILY potassium chloride ER 10 mEq PO DAILY simvastatin 20 mg PO BEDTIME HPI HPI Comments History of Present Illness Details Mona is here for consultation regarding preoperative risk stratification for knee surgery. She does not have any known cardiac issues including coronary disease or myocardial infarction or cardiomyopathy or in fact any cardiac issues at all. In the past, she had reported some shortness of breath but she does not feel that way at this time. She states that her was very ill and hence she thinks she was stressed out and felt short of breath. Otherwise, no anginal-type symptoms. No known cardiac issues overall. [facility] Medical History Skin cancer Epidermal cyst Hyperglycemia Annual physical exam Urinary frequency Knee pain Chronic kidney disease (CKD) Thyroid nodule Hypothyroidism Renal cyst Hematuria, microscopic Hyperlipidemia Hypertension Surgical History History of excision of epidermal inclusion cyst (~09/29/22) H/O colonoscopy Family History Father Unknown family medical history Mother Unknown family medical history Social History Housing: House Alcohol intake: never Patient Tobacco Use Status: Never used Tobacco e-Cigarette/Vaping Use: Never Used Current occupational status: retired Current occupation: right handed Cognitive needs: No Hearing needs: No Vision needs: Yes Review of Systems Const Denies weakness ENT Denies dizziness Card Denies chest pain, Denies chest pain with activity, Denies syncope, Denies rapid heart rate, Denies pedal edema, Denies edema, Denies leg edema, Denies lightheadedness, Denies palpitations, Denies dyspnea, Denies dyspnea on exertion and Denies orthopnea Resp Denies cough, Denies dyspnea and Denies dyspnea on exertion GI Denies hematochezia and Denies change in stool character Musc Denies abnormal gait, Denies muscle cramps, Denies muscle weakness, Denies numbness, Denies radiating pain into limb and Denies tingling Neuro Denies abnormal gait, Denies dizziness, Denies syncope, Denies numbness, Denies tingling and Denies weakness Endo Denies palpitations Physical Exam Vital Signs: Last Vital Signs Pulse 54 06/29/23 09:50 BP 136/80 06/29/23 09:50 BMI result Body Mass Index 32.9 Const General: comfortable and no acute distress Orientation/consciousness: patient oriented x3 HEENT Other: Unremarkable Head: Yes normal to inspection Neck Neck: Yes normal visual inspection Chest Chest palpation & inspection: normal inspection of the chest Resp Auscultation: clear to auscultation bilaterally Cardio Palpation: normal PMI Heart sounds: S1 normal heart sound present, S2 normal heart sound present, no gallops, no murmurs and no rubs GI Palpation (GI): Soft to palpation Back/Spine/Pelvis Other: unremarkable Skin General skin exam: no rashes or lesions noted Neuro General: patient oriented x3 Extrem General: Yes normal to inspection Psych Mental Status: mental status grossly normal Office Procedures EKG Details: EKG with sinus bradycardia, 57/Min; leftward axis; can not exclude old inferior infarct or anterior infarct but could be related to body habitus; slight ME prolongation to 218 milliseconds [place]. [id number], Complete Assessment & Plan Assessment & Plan (1) Abnormal EKG: Code(s): R94.31 - Abnormal electrocardiogram [ECG] [EKG] (2) WILLETT (dyspnea on exertion): Code(s): R06.09 - Other forms of dyspnea (3) Preoperative cardiovascular examination: Code(s): Z01.810 - Encounter for preprocedural cardiovascular examination Plan In the exercise component of stress test, she was able to do 7 METS; reached 86% of target heart rate with shortness of breath, but no other symptoms. No EKG evidence of ischemia. Perfusion component was normal. EKG changes could be related to body habitus. Due to initial complaint of shortness of breath, will get an echocardiogram as well. We can make an addendum once echocardiogram is reviewed. Orders: Orders CA echo transthoracic complete Today R06.09 - Other forms of dyspnea Coding Level of Care Code New Pt Level 3 (42745) Diagnoses Abnormal EKG R94.31 WILLETT (dyspnea on exertion) R06.09 Preoperative cardiovascular examination Z01.810 CPT Codes EKG - CPT: 62363-[id number], Complete ([id number])
== END 2023-06-29 10:07 | disposition home or self-care (01) ==
PROVIDERS: PCP Internal Medicine; Visit Provider Internal Medicine
DX: R94.31 Abnormal electrocardiogram [ECG] [EKG] (principal); R06.09 Other forms of dyspnea; R00.1 Bradycardia, unspecified; Z01.810 Encounter for preprocedural cardiovascular examination
CPT/HCPCS: 93010; 99203; 99213

== ENCOUNTER → 2023-06-29 09:37 | Outpatient (BNVA) | payer MEDICARE, SELFPAY | PROVIDERS: PCP Internal Medicine; Visit Provider Internal Medicine | DX: Z01.810 Encounter for preprocedural cardiovascular examination (principal); R94.31 Abnormal electrocardiogram [ECG] [EKG]; R06.09 Other forms of dyspnea | CPT/HCPCS: 93005; 99202 ==

== ENCOUNTER 2023-06-29 10:30 | Outpatient (REF) | payer MEDICARE, SELFPAY ==
[2023-06-29 13:41] LABS: Anion Gap 12 (12-20); Blood Urea Nitrogen 19 mg/dL (9-16); Calcium 10.7 mg/dL (8.4-10.2); Carbon Dioxide 29 mmol/L (22-29); Chloride 105 mmol/L (96-108); Estimated Glomerular Filt Rate 55; Glucose Random 81 mg/dL (60-115); Potassium 3.6 mmol/L (3.3-5.1); Sodium 142 mmol/L (135-145)
== END 2023-06-29 10:31 | disposition home or self-care (01) ==
LOC: HO.HMGCLDS 10:30
PROVIDERS: PCP Internal Medicine; Visit Provider Internal Medicine
DX: E87.6 Hypokalemia (principal)
CPT/HCPCS: 36415; 80048

== ENCOUNTER → 2023-07-14 12:09 | Outpatient (BNVA) | payer MEDICARE, SELFPAY | PROVIDERS: PCP Internal Medicine; Visit Provider Orthopaedic Surgery ==

== ENCOUNTER → 2023-07-20 12:57 | Outpatient (REF) | payer MEDICARE, SELFPAY ==
--- NOTE | 2023-07-20 13:01 | CA_ITS ---
Transthoracic Echocardiogram Amended Patient (Last, First, Middle): Mona Adams H Gender: Female Date of : 1945 Age: 78 Procedure Date: 07/20/2023 Procedure Type: Transthoracic Echocardiogram Location: OP Height: 149.86 cm Weight: 79.38 kg BSA: 1.74 m2 Heart Rate: bpm BP: 128 / 82 mmHg Electricity Trader: TO Referring MD: Issa Chen MD Pv Installer Tech: Nando Mcleod MD Symptoms: R06.09 - Other forms of dyspnea Study Quality: Fair ECG Rhythm: Sinus Conclusions: - 1. Normal LV ejection fraction of 60 65% with mild LVH with impaired relaxation filling pattern 2. Mild aortic regurgitation 3. Normal RV systolic pressure 4. Mildly dilated ascending aorta 3.8 cm 5. No gross pericardial effusion Findings Left Ventricle Normal left ventricular size and systolic function. There is mildly increased left ventricular wall thickness. The visually estimated ejection fraction is between 60-65%. Spectral Doppler is indicative of an impaired relaxation filling pattern. E/E prime ratio is between 8 and 15 consistent with indeterminate filling pressures. Peak GLS is -22.2%, within normal limits. Right Ventricle Normal right ventricular cavity size and systolic function. Atria The left atrium is likely dilated. Interatrial shunt cannot be excluded. The right atrium is normal in size. Aortic Valve There is mild calcification of the aortic valve. There is no aortic valve stenosis. There is no aortic valve regurgitation. Mitral Valve There is mild anterior and posterior mitral leaflet thickening. There is trace mitral valve regurgitation. There is no mitral valve stenosis. Pulmonic Valve The pulmonic valve is likely normal. Tricuspid Valve Normal tricuspid valve structure. There is trace tricuspid valve regurgitation. The right ventricular systolic pressure is normal. The right ventricular systolic pressure is 22 mmHg. Normal right atrial pressure. There is no evidence of pulmonary hypertension. Great Vessels The pulmonary artery was not well visualized. There is mild dilatation of the ascending aorta measuring 3.80 cm. Venous The inferior vena cava is normal in size and collapses greater than 50% with inspiration. Pericardium/Pleural There is no evidence of pericardial effusion. Prior Study Comparison No significant change compared to prior study dated: 07/17/2019. Measurements 2D Linear Measurements IVSd: 1.29 0.6-0.9/0.6-1.0 cm LVIDd: 3.92 3.9-5.3/4.2-5.9 cm LVIDd Index: 2.25 2.4-3.2/2.2-3.1 cm/m2 LVIDs: 2.90 2.0-3.6 cm LVPWd: 1.28 0.7-1.1 cm LA Diam: 3.60 2.7-3.8/3.0-4.0 cm LAIDs Index: 2.07 1.5-2.3 cm/m2 LV Mass: 221.65 67-162/88-224 g LV Mass Index: 127.38 43-95/49-115 g/m2 LVOT Diam: 2.20 3.0+(-)1.3 cm 2D Volumes LA Vol: 22.20 2D Systolic Function EF 4C: 59.70 >55% EF 2C: 65.40 >55% EF BiP: 63.60 >55% Mitral Valve MV VTI: 0.27 MV Pk Micah: 0.83 MV Mn Micah: 0.44 MV Pk Grad: 3.00 MV Mn Grad: 1.00 MV Pk E: 0.63 MV PK A: 0.77 MV Decel Time: 198.00 E/A: 0.80 E'Lateral: 5.22 E'Medial: 4.35 E/E' Med: 14.50 E/E' Lat: 12.10 PHT: 58.00 MVA PHT: 3.79 MVA Continuity: 3.35 Decel Harney: 3.19 Aortic Valve AoV Pk Micah: 1.61 AoV Mn Micah: 1.11 AoV VTI: 0.38 AoV Pk Grad: 10.00 Aov Mn Grad: 5.00 NOY Cont.VTI: 2.41 LVOT LVOT Pk Micah: 1.07 LVOT Mn Micah: 0.70 LVOT VTI: 0.24 LVOT Pk Grad: 5.00 LVOT Mn Grad: 2.00 LVOT Diam: 2.20 LVOT Area: 3.80 Diastolic Function MV Pk E: 0.63 MV Pk A: 0.77 E/A: 0.80 E'Medial: 4.35 E/E' Med: 14.50 E' Laterial: 5.22 E/E' Lat: 12.10 Right Ventricle TAPSE (mm): 17.90 TVS' Micah: 9.90 Tricuspid Valve TR Pk Micah: 1.89 TR Pk Grad: 14.00 RA Press: 8.00 RVSP: 22.00 Great Vessels Aorta Sinus of Valsalva: 3.60 2.0-3.[address] [place]: 2.70 1.7-3.4 cm Ao Asc: 3.80 2.1-3.4 cm Updated in Other Vendor System with Status of Final Nando Mcleod MD electronically signed on 07/20/2023 3:41:52 PM with status of Final
== END ==
LOC: HO.CARD 12:57
PROVIDERS: PCP Internal Medicine; Visit Provider Internal Medicine
DX: R06.09 Other forms of dyspnea (principal)
CPT/HCPCS: 93306

== ENCOUNTER → 2023-07-20 13:01 | Outpatient (BNV) | payer MEDICARE, SELFPAY | PROVIDERS: PCP Internal Medicine; Visit Provider Internal Medicine Cardiovascular Disease | DX: I35.8 Other nonrheumatic aortic valve disorders (principal) | CPT/HCPCS: 93306; 93356 ==

== ENCOUNTER 2023-07-21 10:24 | Outpatient (REF) | payer MEDICARE, SELFPAY ==
[2023-07-21 13:36] LABS: Anion Gap 10 (12-20); Blood Urea Nitrogen 24 mg/dL (9-16); Calcium 10.1 mg/dL (8.4-10.2); Carbon Dioxide 27 mmol/L (22-29); Chloride 106 mmol/L (96-108); Estimated Glomerular Filt Rate > 60; Glucose Random 80 mg/dL (60-115); Potassium 3.3 mmol/L (3.3-5.1); Sodium 140 mmol/L (135-145)
== END 2023-07-21 10:25 | disposition home or self-care (01) ==
LOC: HO.HMGCLDS 10:24
PROVIDERS: PCP Internal Medicine; Visit Provider Internal Medicine
DX: E87.6 Hypokalemia (principal)
CPT/HCPCS: 36415; 80048

== ENCOUNTER 2023-07-25 13:16 | Outpatient (AMB) | payer MEDICARE, SELFPAY ==
[2023-07-25 13:22] VITALS: BP 110/68; PULSE 76; O2SAT 97; BMI 32.2
--- NOTE | 2023-07-25 13:22 | MHC.PC.OV ---
Vital Signs 07/25/23 13:22 Height 5 ft 2 in Weight 176 lb BMI 32.2 BP 110/68 Blood Pressure Location Rt brachial Position Sitting Pulse 76 Pulse Source Pulse Oximeter Pulse Oximetry (%) 97 Oxygen Delivery Method Room Air Intake Visit Reasons: Pre op LT TKA on 08/02/23 Dr. Lofton Intake Note: Velia is here today for pre op visit. Pt is having total L knee replacement with Dr. Lofton. Allergies amlodipine Allergy (Unknown, Verified 07/25/23 13:33) edema lisinopril Allergy (Unknown, Verified 07/25/23 13:33) Cough hydrochlorothiazide [Maxzide] Adverse Reaction (Intermediate, Verified 07/25/23 13:33) Urinary incontinence triamterene [Maxzide] Adverse Reaction (Unknown, Verified 07/25/23 13:33) urinary incontinence, increased urination Medication List - Last Reconciled 07/25/23 by Shruthi Patel MD estradiol 0.01%(0.1mg/gram) (Estrace) 1 g vaginal 3XW hydralazine 50 mg (2 x 25 mg) PO BID ketoconazole 2% 1 appl topical DAILY levothyroxine 75 mcg PO QAM olmesartan-hydrochlorothiazide 40-25 mg 1 tab PO DAILY potassium chloride ER 10 mEq PO DAILY simvastatin 20 mg PO BEDTIME Tobacco use date assessed: 06/16/23 HPI Pre op LT TKA on 08/02/23 Dr. Lofton HPI Details Pt presents for preop for left knee total arthroplasty. Hypertension hypothyroidism and hyperlipidemia are controlled on current medications. [facility] Medical History Skin cancer Epidermal cyst Hyperglycemia Annual physical exam Urinary frequency Knee pain Chronic kidney disease (CKD) Thyroid nodule Hypothyroidism Renal cyst Hematuria, microscopic Hyperlipidemia Hypertension Surgical History History of excision of epidermal inclusion cyst (~09/29/22) H/O colonoscopy Family History Father Unknown family medical history Mother Unknown family medical history Social History Housing: House Alcohol intake: never Patient Tobacco Use Status: Never used Tobacco e-Cigarette/Vaping Use: Never Used Current occupational status: retired Current occupation: right handed Cognitive needs: No Hearing needs: No Vision needs: Yes Questionnaire PHQ-9 Over the last 2 weeks, how often have you been bothered by any of the following problems? 1. Little interest or pleasure in doing things: not at all 2. Feeling down, depressed, or hopeless: not at all 3. Trouble falling or staying asleep, or sleeping too much: not at all 4. Feeling tired or having little energy: not at all 5. Poor appetite or overeating: not at all 6. Feeling bad about yourself - or that you are a failure or have let yourself or your family down: not at all 7. Trouble concentrating on things, such as reading the newspaper or watching television: not at all 8. Moving or speaking so slowly that other people could have noticed. Or the opposite - being so fidgety or restless that you have been moving around a lot more than usual: not at all 9. Thoughts that you would be better off or of hurting yourself in some way: not at all Total score: 0 Depression Screening Interpretation: Negative Depression Screening Done: Yes Source: Developed by Drs. Kamran Lowe, Manda Leslie, Issac Banks and colleagues, with an educational delaney from [employer]. Thrive Questionnaire Date Thrive assessed: 07/25/23 I am a: Patient What is your living situation today?: I have a steady place to live Within the past 12 months, did the food you bought not last and you didn't have the money to get more?: Never true Within the past 12 months, did you worry whether your food would run out before you got money to buy more?: Never true Do you have trouble paying for medicines?: No Do you have trouble getting transportation to medical appointments?: No Do you have trouble paying your heating and electricity bill?: No Do you have trouble taking care of your child, family member or friend?: No Do you have trouble with day-to-day activities such as bathing, preparing meals, shopping, managing finances, etc.?: No Are you currently unemployed and looking for a job?: No Are you interested in more education?: No Please select the resources that you would like help with: None Currently or been in a relationship where the following occur: no concerns reported THRIVE Score: 0 RENATO-7 AMB Questionnaire RENATO-7 Date RENATO - 7 assessed: 07/25/23 Feeling nervous, anxious, or on edge: 0 = Not at all Not being able to stop or control worryin = Not at all Worrying too much about different things: 0 = Not at all Trouble relaxin = Not at all Being so restless that it is hard to sit still: 0 = Not at all Becoming easily annoyed or irritable: 0 = Not at all Feeling afraid as if something awful might happen: 0 = Not at all Total RENATO-7 score (0-4 normal; 5-9 mild; 10-14 moderate; 15-21 severe): 0 Source: Developed by Drs. Kamran Lowe, Manda Leslie, Issac Banks and colleagues, with an educational delaney from [employer]. Review of Systems Const All systems reviewed & are unremarkable except as noted in HPI and below Reports no additional complaints Eyes Reports no additional complaints ENT Reports no additional complaints Card Reports no additional complaints Resp Reports no additional complaints GI Reports no additional complaints Reports no additional complaints Physical exam (Primary Care) Vital Signs: Last Vital Signs Pulse 76 07/25/23 13:22 BP 110/68 07/25/23 13:22 Pulse Ox 97 07/25/23 13:22 Oxygen Delivery Method Room Air 07/25/23 13:22 BMI result Body Mass Index 32.2 Tobacco/Smoking Status: Tobacco use Status Tobacco use date assessed 06/16/23 07/25/23 13:22 Patient Tobacco Use Status Never used Tobacco 07/25/23 13:22 e-Cigarette/Vaping Use Never Used 07/25/23 13:22 Depression Screening Interpretation: Negative Thrive Assessment: Date of Thrive Assessment Date Thrive assessed 06/07/22 07/25/23 13:22 Currently or been in a relationship where the following occur: no concerns reported Const General: no acute distress HENMT Head: Yes normal to inspection Face and sinus: Yes normal facial exam Eyes General: appearance normal, both eyes and all related structures Neck Neck: Yes supple Resp Effort & Inspection: normal respiratory effort Auscultation: clear to auscultation bilaterally Cardio Rhythm: regular rhythm Heart sounds: S1 normal heart sound present and S2 normal heart sound present GI Inspection: Yes normal to inspection Palpation (GI): Soft to palpation Percussion: Yes normal to percussion Auscultation: normal bowel sounds Assessment and Plan Assessment & Plan (1) Hypokalemia: Code(s): E87.6 - Hypokalemia Plan: increase KCl to 30 mEq and check BMP in 1 week (2) Hypothyroidism: Code(s): E03.9 - Hypothyroidism, unspecified Plan: cont Levothyroxine (3) Hyperlipidemia: Code(s): E78.5 - Hyperlipidemia, unspecified Plan: cont Simvastatin (4) Hypertension: Comment: f/u nephrology Code(s): I10 - Essential (primary) hypertension Plan: cont meds (5) Osteoarthritis of left knee: Code(s): M17.12 - Unilateral primary osteoarthritis, left knee Plan: Pt is cleared for surgery. Orders: Orders Complete Blood Count Auto Diff 1 Week E03.9 - Hypothyroidism, unspecified, E87.6 - Hypokalemia Basic Metabolic Panel 1 Week E87.6 - Hypokalemia Medications: New potassium chloride ER take with potassium 10 mEq daily 20 mEq PO DAILY 90 tabs 0RF Changed From potassium chloride ER 10 mEq PO DAILY 90 tabs 3RF To potassium chloride ER take with 20 mEq daily 10 mEq PO DAILY 90 tabs 3RF Coding Level of Care Code Est Pt Level 4 (28950) Diagnoses Hypokalemia E87.6 Hypothyroidism E03.9 Hyperlipidemia E78.5 Hypertension I10 Osteoarthritis of left knee M17.12
== END 2023-07-25 15:10 | disposition home or self-care (01) ==
PROVIDERS: PCP Internal Medicine; Visit Provider Internal Medicine
DX: E87.6 Hypokalemia (principal); E03.9 Hypothyroidism, unspecified; E78.5 Hyperlipidemia, unspecified; I10 Essential (primary) hypertension; M17.12 Unilateral primary osteoarthritis, left knee
CPT/HCPCS: 99214

== ENCOUNTER 2023-08-04 09:32 | Outpatient (AMB) | payer MEDICARE, SELFPAY ==
--- NOTE | 2023-08-04 06:21 | MHC.OFFVIS ---
Intake Vital Signs 08/04/23 09:52 Height 5 ft 2 in Weight 176 lb BMI 32.2 Intake Visit Reasons: Preop LT TKA 08/09/23 NE Intake Note: Mona a 78 year old female presents today for a preoperative left TKA on 08/09/23. Pain management agreement reviewed and signed. Allergies amlodipine Allergy (Unknown, Verified 08/04/23 09:52) edema lisinopril Allergy (Unknown, Verified 08/04/23 09:52) Cough hydrochlorothiazide [Maxzide] Adverse Reaction (Intermediate, Verified 08/04/23 09:52) Urinary incontinence triamterene [Maxzide] Adverse Reaction (Unknown, Verified 08/04/23 09:52) urinary incontinence, increased urination Medication List - Last Reconciled 08/04/23 by Juli Escobar PA-C estradiol 0.01%(0.1mg/gram) (Estrace) 1 g vaginal 3XW hydralazine 50 mg PO BID ketoconazole 2% 1 appl topical DAILY levothyroxine 75 mcg PO QAM multivitamin 1 tab PO DAILY olmesartan-hydrochlorothiazide 40-25 mg 1 tab PO DAILY potassium chloride ER 10 mEq PO BEDTIME potassium chloride ER 20 mEq PO DAILY simvastatin 20 mg PO BEDTIME HPI HPI Comments History of Present Illness Details Ms Adams presents to the office today for preop visit. She is scheduled for left total knee arthroplasty with Dr. Lofton. She continues to have ongoing pain and difficulty with ambulation in the left knee, which is affecting her quality of life; therefore, she has elected to move forward with surgery. Patient was seen by her PCP and cardiology and was cleared for surgery. [facility] Medical History (Updated 08/02/23 @ 12:14 by Jeanine Jain RN) Arthritis Skin cancer Epidermal cyst Hyperglycemia Annual physical exam Urinary frequency Knee pain Chronic kidney disease (CKD) Thyroid nodule Hypothyroidism Renal cyst Hematuria, microscopic Hyperlipidemia Hypertension Surgical History History of excision of epidermal inclusion cyst (~09/29/22) H/O colonoscopy Family History Father Unknown family medical history Mother Unknown family medical history Social History Housing: House Are you a primary housekeeper child care to a significant other at home: No Do you presently have visiting nurse or other home services: No Alcohol intake: never Patient Tobacco Use Status: Never used Tobacco e-Cigarette/Vaping Use: Never Used Current occupational status: retired Current occupation: right handed Cognitive needs: No Hearing needs: No Vision needs: Yes Review of Systems Const All systems reviewed & are unremarkable except as noted in HPI and below Physical Exam Vital Signs: BMI result Body Mass Index 32.2 Const General: cooperative and no acute distress Orientation/consciousness: patient oriented x3 HEENT Head: Yes normal to inspection, Yes normocephalic and Yes atraumatic Eyes General: appearance normal, both eyes and all related structures Neck Neck: Yes normal visual inspection and Yes no lymphadenopathy Resp Effort & Inspection: normal respiratory effort and able to speak in complete sentences Cardio Rate: regular rate Peripheral pulses: Peripheral pulses 2+ throughout GI Inspection: Yes normal to inspection Palpation (GI): Soft to palpation Skin General skin exam: no rashes or lesions noted Neuro General: patient oriented x3 Extrem Other: Left knee: Normal to inspection. No erythema or joint effusion. ROM is 0-90 degrees. Calf supple, nontender. NVI. Psych Appearance: grossly normal Mental Status: mental status grossly normal Assessment & Plan Assessment & Plan (1) Osteoarthritis of left knee: Code(s): M17.12 - Unilateral primary osteoarthritis, left knee Plan: I discussed in detail the procedure and what to expect pre and post operatively. We discussed the risks, benefits and alternatives to the surgery as well as the rehabilitation course. The risks; which include, but are not limited to infection, bleeding, nerve injury, ongoing pain, swelling, and stiffness, perioperative risk of injury to bones and soft tissues, and blood clots. I?ve answered all questions and with their understanding they have consented to move forward with Left total knee arthroplasty with Dr. Lofton PT order placed-she plans to attend [facility] as it is closer to her house. I gave her the order and advised her to make an appt to begin 2 weeks post op. Orders: Orders PT Evaluation and Treatment Today Z96.652 - Presence of left artificial knee joint Patient Instructions: Scribed for Tung-Jennie Escobar PA-C, by Jason Hodges internist medical doctor md, on 08/04/2023 at 9:45 AM Juli RICE PA-C, have personally reviewed and agree with the information entered by the scribe. Coding Level of Care Code Est Pt Level 3 (48556) Diagnoses Osteoarthritis of left knee M17.12
[2023-08-04 09:52] VITALS: BMI 32.2
== END 2023-08-04 10:55 | disposition home or self-care (01) ==
PROVIDERS: PCP Internal Medicine; Visit Provider Physician Assistant
DX: M17.12 Unilateral primary osteoarthritis, left knee (principal)
CPT/HCPCS: 99024

== ENCOUNTER → 2023-08-04 09:32 | Outpatient (BNVA) | payer MEDICARE, SELFPAY | PROVIDERS: PCP Internal Medicine; Visit Provider Physician Assistant | DX: Z01.818 Encounter for other preprocedural examination (principal); M17.12 Unilateral primary osteoarthritis, left knee | CPT/HCPCS: 99212 ==

== ENCOUNTER 2023-08-09 06:53 | Day surgery (SDC) | payer MEDICARE, SELFPAY ==
[2023-08-02 12:21] VITALS: BP 155/86; PULSE 81; RESP 20; O2SAT 96; BMI 34.4
--- NOTE | 2023-08-02 12:39 | P.CONAN_ITS ---
Documented by User: Mia Villarreal NP 08/02/23 13:03 HPI - Anesthesia Eval Consult details Narrative: 78yo F for Left Knee Replacement Total, 08/09/23 Medically cleared Cardiac cleared (sent for abnormal EKG) No recent illness No CP/SOB with daily eliptical PMFSH Active Problems Active Problems: All Active Problems (Updated 08/02/23 @ 12:14 by Jeanine Jain RN) Osteoarthritis of left knee (Acute) Preoperative cardiovascular examination (Acute) Abnormal EKG (Acute) Hypokalemia (Acute) WILLETT (dyspnea on exertion) (Acute) Sebaceous cyst (Acute) Bacteriuria (Acute) Arthritis of left knee (Acute) Serum calcium elevated (Acute) Skin cancer (Acute) Epidermal cyst (Acute) Hypothyroidism (Acute) Hyperglycemia (Acute) Annual physical exam (Acute) Hyperlipidemia (Acute) Urinary frequency (Acute) Hypertension (Acute) Knee pain (Acute) Chronic kidney disease (CKD) (Acute) Past Medical History Medical History Arthritis Skin cancer Epidermal cyst Hyperglycemia Annual physical exam Urinary frequency Knee pain Chronic kidney disease (CKD) Thyroid nodule Hypothyroidism Renal cyst Hematuria, microscopic Hyperlipidemia Hypertension Family History Family History Father Unknown family medical history Mother Unknown family medical history Family history of problems with anesthesia: No Surgical History Surgical History History of excision of epidermal inclusion cyst (~09/29/22) H/O colonoscopy History of Problems with Anesthesia: No Social History Social History Housing: House Are you a primary progressive care unit registered nurse to a significant other at home: No Do you presently have visiting nurse or other home services: No Alcohol intake: never Patient Tobacco Use Status: Never used Tobacco e-Cigarette/Vaping Use: Never Used Use of substances other than those prescribed or required for medical reasons: No Have you been hit, kicked, punched, or otherwise hurt by someone within the past year? If so, by whom?: No Advance Directives: No Advance Directives Information Provided: Yes Advance Directives on File: No Recently lost weight without trying: No Eating poorly because of decreased appetite: No Nutrition Risks: No Nutritional Risk Patient : No : No Poor oral hygiene: Yes (missing right bottom and left bottom and top) Current occupational status: retired Current occupation: right handed Cognitive needs: No Hearing needs: No Vision needs: Yes Meds Allergies Allergy/AdvReac Type Severity Reaction Status Date / Time amlodipine Allergy Unknown edema Verified 08/04/23 09:52 lisinopril Allergy Unknown Cough Verified 08/04/23 09:52 hydrochlorothiazide [Maxzide] AdvReac Intermediate Urinary Verified 08/04/23 09:52 incontinence triamterene [Maxzide] AdvReac Unknown urinary Verified 08/04/23 09:52 incontinence, increased urination Home Medications Medication Instructions Recorded Confirmed Last Taken Type olmesartan 40 1 tab PO DAILY 12/09/20 08/04/23 Unknown History mg-hydrochlorothiazide 25 mg tablet multivitamin 1 tab PO DAILY 08/02/23 08/04/23 Unknown History potassium chloride 10 mEq 10 meq PO BEDTIME 08/02/23 08/04/23 Unknown History tablet,extended release(part/cryst) hydralazine 50 mg tablet 50 mg PO BID 08/04/23 08/04/23 Unknown History Exam Height,Weight and Vital Signs: Height 5 ft 1 in Weight 82.554 kg Last Vital Signs Pulse 81 08/02/23 12:21 Resp 20 08/02/23 12:21 BP 155/86 H 08/02/23 12:21 Pulse Ox 96 08/02/23 12:21 O2 Del Method Room Air 08/02/23 12:21 Narrative Narrative: EKG 06/2023 sinus bradycardia, 57/Min; leftward axis; can not exclude old inferior infarct or anterior infarct but could be related to body habitus; slight NC prolongation to 218 milliseconds and normal corrected QT. ECHO 07/2023 Conclusions: - 1. Normal LV ejection fraction of 60 65% with mild LVH with impaired relaxation filling pattern 2. Mild aortic regurgitation 3. Normal RV systolic pressure 4. Mildly dilated ascending aorta 3.8 cm 5. No gross pericardial effusion NM cardiolite stress test 2022 IMPRESSION: 1. Myocardial perfusion imaging study shows normal myocardial perfusion. 2. Gated LVEF is 71% during stress and 61% during rest. 3. Transient ischemic dilatation not present. EKG component of the test reported separately. Airway Mallampati Class: II TM Dist: >3cm Neck ROM: Full Loose/Missing/Broken Teeth: No (permanent bridge lower right, stable) Heart: RRR Lungs: CTAB Assessment and Plan Assessment Anesthesia Assessment: Anesthesia Plan Discussed and PAT Visit Final Anesthetic Review Family History of Problems with Anesthesia: No History of Problems with Anesthesia: No Documented by User: Janel Saleh MD 08/09/23 07:56 [facility] Past Medical History Medical History Arthritis Skin cancer Epidermal cyst Hyperglycemia Annual physical exam Urinary frequency Knee pain Chronic kidney disease (CKD) Thyroid nodule Hypothyroidism Renal cyst Hematuria, microscopic Hyperlipidemia Hypertension Family History Family History Father Unknown family medical history Mother Unknown family medical history Surgical History Surgical History History of excision of epidermal inclusion cyst (~09/29/22) H/O colonoscopy Social History Social History Housing: House Are you a primary progressive care unit registered nurse to a significant other at home: No Do you presently have visiting nurse or other home services: No Alcohol intake: never Patient Tobacco Use Status: Never used Tobacco e-Cigarette/Vaping Use: Never Used Use of substances other than those prescribed or required for medical reasons: No Have you been hit, kicked, punched, or otherwise hurt by someone within the past year? If so, by whom?: No Advance Directives: No Advance Directives Information Provided: Yes Advance Directives on File: No Recently lost weight without trying: No Eating poorly because of decreased appetite: No Nutrition Risks: No Nutritional Risk Patient : No : No Poor oral hygiene: Yes (missing right bottom and left bottom and top) Current occupational status: retired Current occupation: right handed Cognitive needs: No Hearing needs: No Vision needs: Yes Meds Allergies Allergy/AdvReac Type Severity Reaction Status Date / Time amlodipine Allergy Unknown edema Verified 08/04/23 09:52 lisinopril Allergy Unknown Cough Verified 08/04/23 09:52 hydrochlorothiazide [Maxzide] AdvReac Intermediate Urinary Verified 08/04/23 09:52 incontinence triamterene [Maxzide] AdvReac Unknown urinary Verified 08/04/23 09:52 incontinence, increased urination Home Medications Medication Instructions Recorded Confirmed Last Taken Type olmesartan 40 1 tab PO DAILY 12/09/20 08/04/23 Unknown History mg-hydrochlorothiazide 25 mg tablet multivitamin 1 tab PO DAILY 08/02/23 08/04/23 Unknown History potassium chloride 10 mEq 10 meq PO BEDTIME 08/02/23 08/04/23 Unknown History tablet,extended release(part/cryst) hydralazine 50 mg tablet 50 mg PO BID 08/04/23 08/04/23 Unknown History Assessment and Plan Assessment Anesthesia Assessment: Chart Reviewed Final Anesthetic Review NPO: Yes ASA Class: III Final Preanesthetic Review: No Changes in Pt Med Stat, Meds/Allgs Chart Reviewed, Consent Obtained/Reviewed and Anes Risks/Benef Reviewed Patient Risk: Intermediate Procedure Risk: Intermediate Anesthetic Plan Anesthetic Plan: Spinal and Regional Block Disposition: Standard PACU
[2023-08-02 13:54] LABS: Hematocrit 42.4 % (37.0-47.0); Hemoglobin 13.8 g/dl (12.0-16.0); Mean Corpuscular HGB Conc 32.5 g/dl (31.0-35.0); Mean Corpuscular Hemoglobin 28.5 pg (27.0-33.0); Mean Corpuscular Volume 87.4 fL (80.0-98.0); Mean Platelet Volume 10.2 fL (9.4-12.3); Platelet Count 305 X10*3/uL (160-400); Red Blood Count 4.85 X10*6/uL (4.20-5.50); White Blood Count 8.2 X10*3/uL (4.8-10.8)
[2023-08-02 14:56] LABS: MRSA Nasal PCR NEGATIVE (Negative); SA Nasal PCR NEGATIVE (Negative)
[2023-08-09] VITALS (13 sets, daily range): BP systolic 97–174; BP diastolic 50–84; PULSE 66–88; RESP 14–20; TEMP 36–37.2; O2SAT 92–98; BMI 35.1; BMI 36.4
--- NOTE | ~2023-08-09 | XR_ITS ---
EXAMINATION: XR KNEE, LEFT CLINICAL INFORMATION: Left total knee arthroplasty COMPARISON: None available. TECHNIQUE: Two views of the left knee. FINDINGS: Status post left total knee arthroplasty. Usual position and alignment of the arthroplasty components. Postsurgical gas in the soft tissues. Surgical clips present. No acute periprosthetic fractures. XR/XR knee LT 2V IMPRESSION: Postsurgical changes status post left total knee arthroplasty
[2023-08-09] MEDS: Lactated Ringers 1,000 ML 100 ML IVCONT ×2 (08:04→14:26)
--- NOTE | 2023-08-09 09:41 | MHC.SHP ---
Pre-Procedural Eval Section A - 24 Hr Update-Section A only Date of Service: 08/09/23 The patient is an INPATIENT: No Changes since office visit: No Cold of Flu in the past 2 weeks, No New Medical Problems, No Changes in Medication and No Patient answered all questions The patient has been examined within 24 hours of the surgical procedure. The History & Physical has been completed within 30 days and I have reviewed it.: Yes Section B - Complete if H&P > 30 days Chief Complaint: Unilateral primary osteoarthritis, left knee Allergies: Allergies Allergy/AdvReac Type Severity Reaction Status Date / Time amlodipine Allergy Unknown edema Verified 08/09/23 08:12 lisinopril Allergy Unknown Cough Verified 08/09/23 08:12 hydrochlorothiazide [Maxzide] AdvReac Intermediate Urinary Verified 08/09/23 08:12 incontinence triamterene [Maxzide] AdvReac Unknown urinary Verified 08/09/23 08:12 incontinence, increased urination Plan I have reviewed the history and physical and performed a pertinent physical examination on my patient. No changes have occurred unless specified. Time Spent With Patient Time: Total time managing care of this patient today ____ minutes.
--- NOTE | 2023-08-09 12:00 | PM.OP ---
Brief Operative Note Date of Service: 08/09/23 Pre-op diagnosis: Left knee OA Post-op diagnosis: same Procedure: Left TKA Implants: [place] Triathlon posterior stabilized, cemented 07/16/12/29a Surgeon: Rahat Lofton MD Anesthesia: regional and spinal Was an High School Assistant Football Coach used for this Procedure?: Yes [employer] Assistant Football Coach: Juli Escobar Estimated blood loss (mL): 20 Tourniquet time (min): 65 IV fluids (mL): 1,000 Pathology: other Condition: stable Disposition: PACU
--- NOTE | 2023-08-09 12:02 | W.PM.OPN ---
Operative Note Operative Note Date of Service: 08/09/23 Narrative: Date of Service: 08/09/23 Pre-op diagnosis: Left knee OA Post-op diagnosis: same Procedure: Left TKA Implants: [place] Triathlon posterior stabilized, cemented 07/16/12ps/29a Surgeon: Rahat Lofton MD Anesthesia: regional and spinal Was an Crm Marketing Specialist used for this Procedure?: Yes Crm Marketing Specialist: Juli Escobar Estimated blood loss (mL): 20 Tourniquet time (min): 65 IV fluids (mL): 1,000 Pathology: other Condition: stable Disposition: PACU Procedure in detail: The patient was brought to the operating room and prepped and draped in standard sterile fashion. A time-out was called to identify proper site proper procedure proper surgeon and IV antibiotics were administered. 1 g of IV TXA acid was administered. I began by making a midline incision to the retinaculum and performed a medial parapatellar arthrotomy. The patella was translated laterally and the knee was flexed up. The medial compartment was eburnated. I performed a small medial peel and resected the infrapatellar fat pad. [place]'s line was then used to drill my intramedullary femoral guide and my distal femur cut of 10 mm was made in 5 degrees of valgus while protecting the soft tissues. I then measured a # 3 femur and placed my cutting guide and made my anterior posterior and chamfer cuts protecting the soft tissues at all times. I then made my box but removing the PCL. Once I was satisfied with my cuts I turned my attention to the tibia. I removed the meniscus medially and laterally and , using an external cutting guide, in line with the tibial crest and the third ray, I made my distal tibial cut in 0 deg slope of while protecting the posterior soft tissues at all times. An extension block was used to confirm appropriate amount of bony resection. I then sized a #3 tibia and once I was satisfied that there was complete tibial coverage I placed my trial and with the trial femur in place took the knee through range of motion. I was satisfied with the extension and flexion as well as the balance at 0, 30 and 90 degrees. I then turned my attention to the patella where I removed 1 cm from the undersurface of the patella and then trialed a 29a patellar button. Again the knee was taken through range of motion I was satisfied with the tracking. I then prepared the tibia with a drill and punch. A femoral bone plug was placed and the knee was irrigated copiously. I then cemented the patella, tibia and femur in standard fashion. Axial compression adn a clamp were used while the cement dried. Once the cement was hard on the back table all excess cement was removed and I trialed different inserts until I selected a #13ps insert. The final insert was placed and local TXA was administered. The knee was then closed with a running Quill suture, a 3 0 Vicryl and jolynn on the skin. Patient was then placed in sterile dressing and brought to recovery room in stable condition there were no known complications.
--- NOTE | 2023-08-09 14:03 | P.CONHOSP_ITS ---
History of Present Illness Data of Consult Service Date: 08/09/23 Primary Care Provider: Shruthi Patel MD HPI 78-year-old woman with history of hypertension, hypothyroidism, hyperlipidemia admitted by Orthopedic surgery and is status post left total knee arthroplasty. Surgery was unremarkable. Patient has been able to eat and drink without any nausea or vomiting. Patient is hemodynamically stable. She has no acute medical complaints at this time. Review of Systems 2 Review of Systems: Denies any recent fever chills or decrease in appetite respiratory denies any shortness of breath or cough cardiovascular denies chest pain gastrointestinal denies any dysphagia abdominal pain nausea vomiting or diarrhea genitourinary denies any dysuria frequency or hematuria musculoskeletal denies any joint pain or swelling neuropsych denies any weakness or seizures all other systems reviewed are negative [facility] Medical History (Updated 08/09/23 @ 14:04 by Kellie Duque NP) Arthritis Skin cancer Epidermal cyst Urinary frequency Knee pain Chronic kidney disease (CKD) Thyroid nodule Hypothyroidism Renal cyst Hematuria, microscopic Hyperlipidemia Hypertension Family History Father Unknown family medical history Mother Unknown family medical history Surgical History History of excision of epidermal inclusion cyst (~09/29/22) H/O colonoscopy Social History Household Members: None Housing: House Are you a primary zoo caretaker to a significant other at home: No Do you presently have visiting nurse or other home services: No Alcohol intake: never Patient Tobacco Use Status: Never used Tobacco e-Cigarette/Vaping Use: Never Used Use of substances other than those prescribed or required for medical reasons: No Have you been hit, kicked, punched, or otherwise hurt by someone within the past year? If so, by whom?: No Do you feel safe in your current relationship?: No Current Relationship Advance Directives: No Advance Directives Information Provided: Yes Advance Directives on File: No Do you have thoughts of harming others: None Do you have a plan to hurt others: No Plan Recently lost weight without trying: No Eating poorly because of decreased appetite: No Nutrition Risks: No Nutritional Risk Patient : No : No Poor oral hygiene: No Current occupational status: retired Current occupation: right handed Cognitive needs: No Hearing needs: No Vision needs: Yes Meds Allergies Allergy/AdvReac Type Severity Reaction Status Date / Time amlodipine Allergy Unknown edema Verified 08/09/23 08:12 lisinopril Allergy Unknown Cough Verified 08/09/23 08:12 hydrochlorothiazide [Maxzide] AdvReac Intermediate Urinary Verified 08/09/23 08:12 incontinence triamterene [Maxzide] AdvReac Unknown urinary Verified 08/09/23 08:12 incontinence, increased urination Active Medications: Current Medications Acetaminophen (Acetaminophen 325 Mg Tablet) 650 mg PO Q6H PRN PRN Reason: Pain, Mild (Pain Scale 1-3) Aspirin (Aspirin 325 Mg Tablet) 325 mg PO BID [facility] Celecoxib (Celecoxib 200 Mg Capsule) 200 mg PO BID [facility] Docusate Sodium (Docusate Sodium 100 Mg Capsule) 100 mg PO BID [facility] Hydromorphone HCl (Hydromorphone Hcl 0.5 Mg/0.5 Ml Syringe) 0.25 mg IVPUSH Q4H PRN; Protocol PRN Reason: Pain, Severe (Pain Scale 7-10) Lactated Ringer's (Lr) 1,000 mls @ 100 mls/hr IVCONT .Q10H [facility] Stop: 08/10/23 12:18 Cefazolin Sodium/Dextrose (Ancef) 2 gm in 50 mls @ 100 mls/hr IV POSTOP ONE Stop: 08/09/23 14:27 Levothyroxine Sodium (Levothyroxine Sodium 75 Mcg Tablet) 75 mcg PO QAM [facility] Non-Formulary Medication (Ketoconazole) 1 appl TOPICAL DAILY [facility] Ondansetron HCl (Ondansetron Hcl 4 Mg/2 Ml Vial) 4 mg IVPUSH Q8H PRN PRN Reason: Nausea and Vomiting Oxycodone HCl (Oxycodone Hcl Immed Release 5 Mg Tablet) 5 mg PO Q4H PRN PRN Reason: Pain, Moderate(Pain Scale 4-6) Oxycodone HCl (Oxycodone Hcl Er 10 Mg Tab.Er.12h) 10 mg PO BID [facility] Potassium Chloride (Potassium Chloride Er 10 Meq Tablet.Er) 10 meq PO BEDTIME [facility] Potassium Chloride (Potassium Chloride Er 20 Meq Tab.Er.Prt) 20 meq PO DAILY [facility] Sodium Chloride (0.9 % Sodium Chloride Flush 3 Ml Syringe) 3 ml IVFLUSH QSHIFT [facility] Home Medications Medication Instructions Recorded Confirmed Last Taken Type olmesartan 40 1 tab PO DAILY 12/09/20 08/09/23 08/08/23 History mg-hydrochlorothiazide 25 mg tablet multivitamin 1 tab PO DAILY 08/02/23 08/09/23 08/08/23 History potassium chloride 10 mEq 10 meq PO BEDTIME 08/02/23 08/09/23 08/08/23 History tablet,extended release(part/cryst) hydralazine 50 mg tablet 50 mg PO BID 08/04/23 08/09/23 08/09/23 History Physical Exam 2 Vital Signs and Narrative: Vital Signs: Last Vital Signs Temp 97.4 F 08/09/23 13:38 Pulse 68 08/09/23 13:38 Resp 17 08/09/23 13:38 BP 138/71 08/09/23 13:38 Pulse Ox 96 08/09/23 13:38 O2 Del Method Room Air 08/09/23 13:38 BMI result Body Mass Index 36.4 Appearing in no acute distress head is normocephalic atraumatic eyes pupils are PERRLA sclera is anicteric mouth throat mucous membranes are intact and moist neck is supple no lymphadenopathy, no JVD noted lung sounds are clear to auscultation heart regular rate rhythm, clear S1, S2 positive bowel sounds, abdomen is soft, nontender neuro patient is alert x3, no focal deficits Results Labs 08/02/23 13:19 Assessment and Plan (1) Osteoarthritis of left knee: Status: Acute Plan 78-year-old woman admitted by Orthopedic surgery and is status post left total knee arthroplasty Left total knee arthroplasty Management as per surgical team Pain management Hypertension Stable blood pressure May resume blood pressure medication tomorrow if blood pressure allows Hypothyroidism Continue levothyroxine DVT prophylaxis with full-dose aspirin Full code Medical consultation complete. Will sign off
--- NOTE | 2023-08-09 14:08 | PHA.MEDREC ---
Pharmacy Consult ? Medication Reconciliation Pharmacy has completed the medication reconciliation. Reviewed med rec done by nursing
[2023-08-09] MEDS: Acetaminophen 325 MG TABLET 650 MG PO ×2 (14:50→20:49)
[2023-08-09] MEDS: ceFAZolin Sodium/Dextrose,Iso 2 GM/50 ML PIGGYBACK IV (16:07)
[2023-08-09] MEDS: Celecoxib 200 MG CAPSULE PO (20:48)
[2023-08-09] MEDS: Docusate Sodium 100 MG CAPSULE PO (20:48)
[2023-08-09] MEDS: oxyCODONE HCl ER 10 MG TAB.ER.12H PO (20:48)
[2023-08-09] MEDS: Potassium Chloride ER 10 MEQ TABLET.ER PO (20:48)
[2023-08-09] MEDS: Atorvastatin Calcium 10 MG TABLET PO (20:48)
[2023-08-10] MEDS: Lactated Ringers 1,000 ML 100 ML IVCONT (02:02)
[2023-08-10 03:23] VITALS: BP 109/63; PULSE 74; RESP 16; TEMP 36.1; O2SAT 94
[2023-08-10] MEDS: Levothyroxine Sodium 75 MCG TABLET PO (05:35)
[2023-08-10] MEDS: Acetaminophen 325 MG TABLET 650 MG PO (05:35)
[2023-08-10 06:41] LABS: MANUAL DIFF FLAG NO
[2023-08-10 07:01] LABS: Basophils Percent Auto 0.2 % (0-2); Eosinophils Percent Auto 0.1 % (0-4); Hematocrit 36.8 % (37.0-47.0); Hemoglobin 12.1 g/dl (12.0-16.0); Imm Gran Abs Auto 0.05 X10*3/uL (0.00-0.03); Imm Gran Pct Auto 0.4 % (0.0-0.4); Lymphocytes Absolute Auto 0.9 X10*3/uL (1.2-4.9); Lymphocytes Percent Auto 7.2 % (20-40); Mean Corpuscular HGB Conc 32.9 g/dl (31.0-35.0); Mean Corpuscular Hemoglobin 28.2 pg (27.0-33.0); Mean Corpuscular Volume 85.8 fL (80.0-98.0); Mean Platelet Volume 10.1 fL (9.4-12.3); Monocytes Absolute Auto 0.7 X10*3/uL (0.1-1.2); Monocytes Percent Auto 5.9 % (2-11); Neutrophils Absolute Auto 10.7 x10*3/uL (2.0-8.3); Neutrophils Percent Auto 86.2 % (45-73); Platelet Count 245 X10*3/uL (160-400); Red Blood Count 4.29 X10*6/uL (4.20-5.50); Red Cell Distribution Width 13.7 % (11.0-16.0); White Blood Count 12.4 X10*3/uL (4.8-10.8)
[2023-08-10 07:11] LABS: Anion Gap 12 (12-20); Blood Urea Nitrogen 20 mg/dL (9-16); Calcium 9.6 mg/dL (8.4-10.2); Carbon Dioxide 26 mmol/L (22-29); Chloride 106 mmol/L (96-108); Creatinine Clr Calc Pharmacy 57.9; Estimated Glomerular Filt Rate > 60; Glucose Fasting 120 mg/dL (60-99); Potassium 3.5 mmol/L (3.3-5.1); Sodium 140 mmol/L (135-145)
--- NOTE | 2023-08-10 07:22 | PM.PNORT ---
Subjective Subjective Date of Service: 08/10/23 Interval history: POD1 s/p LTKA Patient is resting in bed comfortably No overnight events Pain is managed No additional complaints Physical Exam Vital Signs: Vital Signs: Last Vital Signs Temp 96.9 F 08/10/23 03:23 Pulse 74 08/10/23 03:23 Resp 16 08/10/23 03:23 BP 109/63 08/10/23 03:23 Pulse Ox 94 08/10/23 03:23 O2 Del Method Room Air 08/10/23 03:23 BMI result Body Mass Index 36.4 Const: General: cooperative, healthy appearing and no acute distress Resp: Effort & Inspection: normal respiratory effort and able to speak in complete sentences Cardio: Rate: regular rate Peripheral pulses: Peripheral pulses 2+ throughout GI: Palpation (GI): Soft to palpation Skin: Lesions: no lesions Rashes: no rashes Extrem: Other: left knee dressing is c/d/i. Able to dorsi/plantar flex. Calf is supple and nontender. Sensation intact. Pedal pulse intact. Procedures Date of Service Date of Service: 08/10/23 Progress Note: A&P Assessment and plan (1) Status post total knee replacement, left: Status: Acute Plan Continue pain mgmnt Begin ASA for dvt ppx begin PT for LTKA Dispo planning-Pending PT eval, pain mgmnt Patient needs ongoing hospitalization for physical therapy and safe discharge Time Spent With Patient Time: Total time managing care of this patient today ____ minutes. Quality Stroke Does the patient have a stroke diagnosis?: No VTE Prior VTE?: No VTE Risk Level:: Medical - moderate - high VTE Device Contraindication: N/A - Device Ordered VTE Drug Contraindication: N/A - Med Ordered
[2023-08-10 07:25] VITALS: BP 109/63; PULSE 74; O2SAT 94
[2023-08-10 07:29] VITALS: BP 138/72; PULSE 60; RESP 14; TEMP 36; O2SAT 97
--- NOTE | 2023-08-10 07:32 | PM.DS ---
DS: Providers Provider Date of Service: 08/10/23 Primary care physician: Shruthi Patel MD Consults: 08/09/23 13:58 Consult to Hospitalist Routine Comment: Consulting Provider: Hospitalist Reason For Exam: medical managment . ckd DS: Diagnosis Discharge Diagnosis (1) Status post total knee replacement, left: Status: Acute DS: Summary Hospital Course Hospital Course: The patient underwent a successful left total knee arthroplasty, they were transferred to PACU and then to the floor to recover. During their stay, their vitals were stable, afebrile at 97.5. Labs were unremarkable, H/H 10.2/31.9. POD 1 they were started on Aspirin 325mg po bid for DVT ppx, they also received Physical Therapy services twice a day. Prior to discharge, their dressing was clean dry and intact and the plan was to be discharged home with VNA services. Time Attestation Discharge Coordination Time (in mins): 30 Quality: Safe Use of Opioids Does Pt have an Active Cancer Diagnosis on the Problem List?: No Quality: Stroke Does the patient have a stroke diagnosis?: No Physical Exam Vital Signs: Vital Signs: Last Vital Signs Temp 96.8 F 08/10/23 07:29 Pulse 60 08/10/23 07:29 Resp 14 08/10/23 07:29 BP 138/72 08/10/23 07:29 Pulse Ox 97 08/10/23 07:29 O2 Del Method Room Air 08/10/23 07:29 BMI result Body Mass Index 36.4 Const: General: cooperative, healthy appearing and no acute distress Resp: Effort & Inspection: normal respiratory effort and able to speak in complete sentences Cardio: Rate: regular rate Peripheral pulses: Peripheral pulses 2+ throughout GI: Palpation (GI): Soft to palpation Skin: Lesions: no lesions Rashes: no rashes Extrem: Other: left knee dressing is c/d/i. Able to dorsi/plantar flex. Calf is supple and nontender. Sensation intact. Pedal pulse intact. DS: Data Data Completed and Pending Pending studies at discharge: Pending at discharge 08/09/23 11:09 Surgical [PTH] Routine Labs on day of discharge: Laboratory Results - last 24 hr 08/10/23 08/10/23 06:18 06:24 WBC 12.4 H RBC 4.29 Hgb 12.1 Hct 36.8 L MCV 85.8 MCH 28.2 MCHC 32.9 RDW 13.7 Plt Count 245 MPV 10.1 Immature Gran % (Auto) 0.4 Neut % (Auto) 86.2 H Lymph % (Auto) 7.2 L [place] % (Auto) 5.9 Eos % (Auto) 0.1 Baso % (Auto) 0.2 Lymph # (Auto) 0.9 L [place] # (Auto) 0.7 Eos # (Auto) 0.0 Baso # (Auto) 0.0 Abs Immat Gran (auto) 0.05 H Absolute Neuts (auto) 10.7 H Absolute Nucleated RBC 0.000 Nucleated RBC % (auto) 0.0 Sodium 140 Potassium 3.5 Chloride 106 Carbon Dioxide 26 Anion Gap 12 BUN 20 H Creatinine 0.83 Estim Creat Clear Calc 57.9 Estimated GFR > 60 Fasting Glucose 120 H Calcium 9.6 Discharge Plan Discharge Patient Disposition: Home, Self-Care Referrals: Juli Escobar PA-C [Physician [employer]] - 08/25/23 12:30 pm Discharge Medications: New acetaminophen 325 mg Tablet 650 mg PO Q6H PRN (Reason: Pain, Mild (Pain Scale 1-3)) 30 Days Qty: 240 0RF aspirin 325 mg Tablet 325 mg PO Q12H 42 Days Qty: 84 0RF celecoxib 200 mg Capsule 200 mg PO BID 30 Days Qty: 60 0RF docusate sodium 100 mg Capsule 100 mg PO BID 30 Days Qty: 60 0RF oxycodone 5 mg Tablet 5 mg PO Q4H PRN (Reason: Pain, Moderate(Pain Scale 4-6)) 7 Days Qty: 42 0RF Rx Instructions: Partial Fill upon patient request. Continued levothyroxine 75 mcg tablet 75 mcg PO QAM Qty: 90 3RF ketoconazole 2 % cream 1 appl topical DAILY Qty: 60 1RF estradiol [Estrace] 0.01 % (0.1 mg/gram) cream 1 g vaginal 3XW Qty: 42.5 1RF simvastatin 20 mg tablet 20 mg PO BEDTIME Qty: 90 3RF potassium chloride 10 mEq tablet,ER particles/crystals 10 meq PO BEDTIME Rx Instructions: take with 20 mEq daily multivitamin Tablet 1 tab PO DAILY olmesartan-hydrochlorothiazide 40-25 mg tablet 1 tab PO DAILY potassium chloride 20 mEq tablet extended release 20 meq PO DAILY Qty: 90 0RF Rx Instructions: take with potassium 10 mEq daily hydralazine 50 mg tablet 50 mg PO BID Diet: Advance to usual diet Activity on Discharge: Use cane or walker Activity Restrictions/Additional Instructions: Physical Therapy for ROM 0-120, quad strength, gait training. Use walker for ambulation Limit stair climbing, No shower, No tub bath, No driving Continue anticoagulant Keep Aquacel dressing clean, dry and intact. Follow up with orthopedics in 2 weeks
--- NOTE | 2023-08-10 07:33 | P.F2F_ITS ---
Service Date Service Date: 08/10/23 Encounter Date of encounter: 08/10/23 Reasons for Services Signs and symptoms assessed: s/p LTKA. Pt. is considered homebound due to recent surgery. Unable to drive, poor balance, poor gait mechanics. Reason for physical therapy: home safety and mobility, therapeutic exercises, restore joint function, gait/transfer training, assess need for DME and ADL training Homebound: Leaving the home is medically contraindicated at this time without the asist of a device and/or another person due th the listed conditions above and below. Reason homebound: unsteady gait / fall risk, leg weakness, pain with ambulation, pain with transfers, poor balance / fall risk and unable to drive Certification: Based on the above findings, I certify that this patient is confined to the home and needs intermittent senior living care, physical therapy and/or speech therapy, or continues to need occupational therapy. The patient is under my care, and I have initiated the establishment of the plan of care. The patient will be followed by a physician who will periodically review the plan of care. Time Spent With Patient Time: Total time managing care of this patient today ____ minutes.
[2023-08-10] MEDS: oxyCODONE HCl ER 10 MG TAB.ER.12H PO (07:34)
[2023-08-10] MEDS: Celecoxib 200 MG CAPSULE PO (07:34)
[2023-08-10] MEDS: Potassium Chloride ER 20 MEQ TAB.ER.PRT PO (07:35)
--- NOTE | 2023-08-10 09:02 | MHC.CM.PN ---
IMM DELIVERED. PATIENT IS FROM HOME ALONE. FUNCTIONALLY INDEPENDENT. DENIES USE OF SERVICES OR DME. DOES HAVE DME IN THE HOME THAT BELONGED TO LATE . PCP: YULIA MOE HCP: PATIENT REPORTS SHE HAS A HCP ON FILE AT HOME WITH HER SON LILLIAN LISTED HEALTH CARE AGENT. PATIENT WILL SEND A COPY TO CASE MANAGEMENT. DP: PATIENT IS MEDICALLY CLEARED FOR DC HOME W/ SERVICES. [facility] HAS ACCEPTED AND ARE AWARE OF DC. DAUGHTER WILL PROVIDE TRANSPORTATION HOME ~12PM.
--- NOTE | 2023-08-10 09:43 | HO.POSTANES ---
Post Anesthesia Evaluation Post Anesthesia Evaluation Date of Service: 08/10/23 Vital Signs: Vital Signs Temp Pulse Resp BP Pulse Ox O2 Del Method 08/10/23 07:29 96.8 F 60 14 138/72 97 Room Air 08/10/23 07:25 74 109/63 94 08/10/23 03:23 96.9 F 74 16 109/63 94 Room Air 08/09/23 23:37 97.2 F 81 14 109/55 L 93 Room Air Anesthesia: Spinal and Nerve Block Mental Status: Awake Pain Control: Satisfactory Nausea/Vomiting: None Hydration: Adequate Anesthesia-Related Issues: No Anes. Related Issues
[2023-08-10 10:15] VITALS: BP 138/72; PULSE 60; O2SAT 97
[2023-08-10] MEDS: Aspirin 325 MG TABLET PO (11:52)
== END 2023-08-10 12:38 | disposition home health service (06) ==
LOC: HO.SSS 06:55 → HO.S3 12:43
PROVIDERS: Nurse Practitioner; Physician Assistant; PCP Internal Medicine; Visit Provider Orthopaedic Surgery
PROC: (CPT 27447; principal; 2023-08-09 10:00)
DX: M17.12 Unilateral primary osteoarthritis, left knee (principal); M25.562 Pain in left knee; R26.2 Difficulty in walking, not elsewhere classified; I12.9 Hypertensive chronic kidney disease with stage 1 through stage 4 chronic kidney disease, or unspecified chronic kidney disease; N18.9 Chronic kidney disease, unspecified; N28.1 Cyst of kidney, acquired; R73.9 Hyperglycemia, unspecified; E78.5 Hyperlipidemia, unspecified; E03.9 Hypothyroidism, unspecified; E87.6 Hypokalemia; Z85.828 Personal history of other malignant neoplasm of skin; Z79.899 Other long term (current) drug therapy; Z88.8 Allergy status to other drugs, medicaments and biological substances
CPT/HCPCS: 27447; 36415; 73560; 80048; 85025; 85027; 86850; 86900; 86901; 87640; 87641; 88305; 88311; 97110; 97116; 97162; C1713; C1776; J0131; J0665; J0690; J1100; J2250; J2704; J7120

== ENCOUNTER → 2023-08-09 06:53 | Outpatient (BNV) | payer MEDICARE, SELFPAY | PROVIDERS: PCP Internal Medicine; Visit Provider Nurse Practitioner Acute Care | DX: M17.12 Unilateral primary osteoarthritis, left knee (principal) | CPT/HCPCS: 99222 ==

== ENCOUNTER → 2023-08-09 06:53 | Outpatient (BNV) | payer MEDICARE, SELFPAY | PROVIDERS: PCP Internal Medicine; Visit Provider Orthopaedic Surgery | DX: Z47.1 Aftercare following joint replacement surgery (principal); Z96.652 Presence of left artificial knee joint | CPT/HCPCS: 27130; 99024; G0180 ==

== ENCOUNTER 2023-08-25 12:18 | Outpatient (AMB) | payer MEDICARE, SELFPAY ==
--- NOTE | 2023-08-25 12:22 | A.OFFVIS_ITS ---
Intake Intake Visit Reasons: PO LT TKA 08/09/23 NE Intake Note: Mona a 78 year old female who presents today for a post operative left TKA on 08/09/23 NE. Patient reports that she is doing well with mild pain in the knee. Allergies amlodipine Allergy (Unknown, Verified 08/09/23 08:12) edema lisinopril Allergy (Unknown, Verified 08/09/23 08:12) Cough hydrochlorothiazide [Maxzide] Adverse Reaction (Intermediate, Verified 08/09/23 08:12) Urinary incontinence triamterene [Maxzide] Adverse Reaction (Unknown, Verified 08/09/23 08:12) urinary incontinence, increased urination HPI PO LT TKA 08/09/23 NE HPI Details Two weeks status post left knee replacement doing well. No complaints. She is taking aspirin for prophylaxis and doing physical therapy. [facility] Medical History Osteoarthritis of left knee Arthritis Skin cancer Epidermal cyst Urinary frequency Knee pain Chronic kidney disease (CKD) Thyroid nodule Hypothyroidism Renal cyst Hematuria, microscopic Hyperlipidemia Hypertension Surgical History History of excision of epidermal inclusion cyst (~09/29/22) H/O colonoscopy Family History Father Unknown family medical history Mother Unknown family medical history Social History Household Members: None Housing: House Are you a primary career resource specialist to a significant other at home: No Do you presently have visiting nurse or other home services: No Alcohol intake: never Patient Tobacco Use Status: Never used Tobacco e-Cigarette/Vaping Use: Never Used service: No Current occupational status: retired Current occupation: right handed Cognitive needs: No Hearing needs: No Vision needs: Yes Review of Systems Const All systems reviewed & are unremarkable except as noted in HPI and below Physical Exam Extrem Other: Incision clean dry and intact 3-120 degrees of motion Firing quad Assessment & Plan Assessment & Plan (1) Status post total knee replacement, left: Code(s): Z96.652 - Presence of left artificial knee joint Plan: Two weeks status post left knee replacement doing well. Continue chemo prophylaxis Continue physical therapy Follow up in 4 weeks Patient Instructions: Scribed for Juli Escobar PA-C, by Jason Hodges director medical surgical, on 08/25/2023 at 12:30 PM ROGERIO. Juli Bee PA-C, have personally reviewed and agree with the information entered by the scribe. Coding Level of Care Code Global (97202) Diagnoses Status post total knee replacement, left Z96.652
== END 2023-08-25 13:12 | disposition home or self-care (01) ==
PROVIDERS: PCP Internal Medicine; Visit Provider Orthopaedic Surgery
DX: Z96.652 Presence of left artificial knee joint (principal)
CPT/HCPCS: 99024

== ENCOUNTER → 2023-08-25 12:18 | Outpatient (BNVA) | payer MEDICARE, SELFPAY | PROVIDERS: PCP Internal Medicine; Visit Provider Physician Assistant | DX: Z96.652 Presence of left artificial knee joint (principal) | CPT/HCPCS: 99212 ==

== ENCOUNTER 2023-09-22 12:02 | Outpatient (AMB) | payer MEDICARE, SELFPAY ==
--- NOTE | 2023-09-22 12:10 | MHC.OFFVIS ---
Intake Visit Reasons: 6 wk postop LT TKA 08/09/23 NE Intake Note: Mona a 78 year old female who presents today for a post operative left TKA on 08/09/23 NE. Patient reports that she is still having some pain that is noticable. Pain is good in the morning but throughout the day she has increased pain swelling. Allergies amlodipine Allergy (Unknown, Verified 09/22/23 12:13) edema lisinopril Allergy (Unknown, Verified 09/22/23 12:13) Cough hydrochlorothiazide [Maxzide] Adverse Reaction (Intermediate, Verified 09/22/23 12:13) Urinary incontinence triamterene [Maxzide] Adverse Reaction (Unknown, Verified 09/22/23 12:13) urinary incontinence, increased urination HPI HPI 6 wk postop LT TKA 08/09/23 NE: Details: doing well s/p left TKA. Complains of o pain. Not using a cane. PFSH Medical History Osteoarthritis of left knee Arthritis Skin cancer Epidermal cyst Urinary frequency Knee pain Chronic kidney disease (CKD) Thyroid nodule Hypothyroidism Renal cyst Hematuria, microscopic Hyperlipidemia Hypertension Surgical History History of excision of epidermal inclusion cyst (~09/29/22) H/O colonoscopy Family History Father Unknown family medical history Mother Unknown family medical history Social History Household Members: None Housing: House Are you a primary assistant child care teacher to a significant other at home: No Do you presently have visiting nurse or other home services: No Alcohol intake: never Patient Tobacco Use Status: Never used Tobacco e-Cigarette/Vaping Use: Never Used service: No Current occupational status: retired Current occupation: right handed Cognitive needs: No Hearing needs: No Vision needs: Yes Physical Exam Extrem Other: 0-120 inc c/d/i stable arc of motion Assessment & Plan Assessment & Plan (1) Status post total knee replacement, left: Code(s): Z96.652 - Presence of left artificial knee joint Category: Surgical Plan: Doing well Continue strengthening f/u 6 weeks september d/c ASA Coding Level of Care Code Global (91373) Diagnoses Status post total knee replacement, left Z96.652
== END 2023-09-22 12:45 | disposition home or self-care (01) ==
PROVIDERS: PCP Internal Medicine; Visit Provider Orthopaedic Surgery
DX: Z96.652 Presence of left artificial knee joint (principal)
CPT/HCPCS: 99024

== ENCOUNTER → 2023-09-22 12:02 | Outpatient (BNVA) | payer MEDICARE, SELFPAY | PROVIDERS: PCP Internal Medicine; Visit Provider Orthopaedic Surgery | DX: Z47.1 Aftercare following joint replacement surgery (principal); Z96.652 Presence of left artificial knee joint | CPT/HCPCS: 99212 ==

== ENCOUNTER 2023-11-03 12:43 | Outpatient (AMB) | payer MEDICARE, SELFPAY ==
--- NOTE | 2023-11-03 12:59 | A.OFFVIS_ITS ---
Intake Visit Reasons: PO-LT TKA 08/09/23 NE Intake Note: Mona is a 78 year old female who presents today post operatively s/p Left TKA 08/09/23. Patient reports she has not been having pain and is doing well. She is having difficulty with ambulating up stairs and getting up from sitting. Allergies amlodipine Allergy (Unknown, Verified 11/03/23 13:05) edema lisinopril Allergy (Unknown, Verified 11/03/23 13:05) Cough hydrochlorothiazide [Maxzide] Adverse Reaction (Intermediate, Verified 11/03/23 13:05) Urinary incontinence triamterene [Maxzide] Adverse Reaction (Unknown, Verified 11/03/23 13:05) urinary incontinence, increased urination HPI HPI PO-LT TKA 08/09/23 NE: Details: Mona is a 78 year old female who presents today post operatively s/p Left TKA 08/09/23. Patient reports she has not been having pain and is doing well. She is having mild difficulty with ambulating up stairs and getting up from sitting. [facility] Medical History Osteoarthritis of left knee Arthritis Skin cancer Epidermal cyst Urinary frequency Knee pain Chronic kidney disease (CKD) Thyroid nodule Hypothyroidism Renal cyst Hematuria, microscopic Hyperlipidemia Hypertension Surgical History History of excision of epidermal inclusion cyst (~09/29/22) H/O colonoscopy Family History Father Unknown family medical history Mother Unknown family medical history Social History Household Members: None Housing: House Are you a primary client care manager to a significant other at home: No Do you presently have visiting nurse or other home services: No Alcohol intake: never Patient Tobacco Use Status: Never used Tobacco e-Cigarette/Vaping Use: Never Used service: No Current occupational status: retired Current occupation: right handed Cognitive needs: No Hearing needs: No Vision needs: Yes Physical Exam Extrem Other: inc c/d/i 0-130 stable arc of motion Assessment & Plan Assessment & Plan (1) Status post total knee replacement, left: Code(s): Z96.652 - Presence of left artificial knee joint Category: Surgical Plan: Doing well with no complaints. Dental prophylaxis discussed. Coding Level of Care Code Global (74898) Diagnoses Status post total knee replacement, left Z96.652
== END 2023-11-03 13:38 | disposition home or self-care (01) ==
PROVIDERS: PCP Internal Medicine; Visit Provider Orthopaedic Surgery
DX: Z96.652 Presence of left artificial knee joint (principal)
CPT/HCPCS: 99024

== ENCOUNTER → 2023-11-03 12:43 | Outpatient (BNVA) | payer MEDICARE, SELFPAY | PROVIDERS: PCP Internal Medicine; Visit Provider Orthopaedic Surgery | DX: Z47.1 Aftercare following joint replacement surgery (principal); Z96.652 Presence of left artificial knee joint | CPT/HCPCS: 99212 ==

== ENCOUNTER 2023-12-06 07:10 | Outpatient (REF) | payer MEDICARE, SELFPAY ==
[2023-12-06 10:09] LABS: MANUAL DIFF FLAG NO
[2023-12-06 10:20] LABS: Basophils Absolute Auto 0.1 X10*3/uL (0.0-0.2); Basophils Percent Auto 0.8 % (0-2); Eosinophils Absolute Auto 0.3 X10*3/uL (0.0-0.4); Eosinophils Percent Auto 4.7 % (0-4); Hematocrit 39.6 % (37.0-47.0); Hemoglobin 12.9 g/dl (12.0-16.0); Imm Gran Abs Auto 0.03 X10*3/uL (0.00-0.03); Imm Gran Pct Auto 0.5 % (0.0-0.4); Lymphocytes Absolute Auto 1.3 X10*3/uL (1.2-4.9); Mean Corpuscular HGB Conc 32.6 g/dl (31.0-35.0); Mean Corpuscular Hemoglobin 28.1 pg (27.0-33.0); Mean Corpuscular Volume 86.3 fL (80.0-98.0); Mean Platelet Volume 10.3 fL (9.4-12.3); Monocytes Absolute Auto 0.5 X10*3/uL (0.1-1.2); Monocytes Percent Auto 7.8 % (2-11); Neutrophils Absolute Auto 3.9 x10*3/uL (2.0-8.3); Neutrophils Percent Auto 65.2 % (45-73); Platelet Count 297 X10*3/uL (160-400); Red Blood Count 4.59 X10*6/uL (4.20-5.50); Red Cell Distribution Width 13.2 % (11.0-16.0)
[2023-12-06 10:26] LABS: Alanine Aminotransferase 17 U/L (0-31); Albumin Level 4.1 g/dL (3.5-5.0); Alkaline Phosphatase 73 U/L (39-117); Anion Gap 14 (12-20); Aspartate Amino Transferase 21 U/L (5-31); Bilirubin Total 0.5 mg/dL (0.0-1.0); Blood Urea Nitrogen 15 mg/dL (9-16); Calcium 9.8 mg/dL (8.4-10.2); Carbon Dioxide 25 mmol/L (22-29); Chloride 106 mmol/L (96-108); Cholesterol 178 mg/dL (<200); Estimated Glomerular Filt Rate > 60; Glucose Fasting 99 mg/dL (60-99); HDL Cholesterol 51 mg/dL (>40); LDL Cholesterol Calculated 92 mg/dL (<100); Sodium 142 mmol/L (135-145); Total Protein 7.1 g/dL (6.5-8.0); Triglycerides 178 mg/dL (<150)
== END 2023-12-06 07:11 | disposition home or self-care (01) ==
LOC: HO.HMGCLDS 07:10
PROVIDERS: PCP Internal Medicine; Visit Provider Internal Medicine
DX: E03.9 Hypothyroidism, unspecified (principal); R73.9 Hyperglycemia, unspecified; I10 Essential (primary) hypertension
CPT/HCPCS: 36415; 80053; 80061; 85025

== ENCOUNTER 2023-12-16 10:55 | Outpatient (AMB) | payer MEDICARE, SELFPAY ==
[2023-12-16 10:57] VITALS: BP 134/78; PULSE 69; O2SAT 97; BMI 34.6
--- NOTE | 2023-12-16 10:57 | A.OFFPC_ITS ---
Vital Signs 12/16/23 10:57 Height 5 ft 1 in Weight 183 lb BMI 34.6 BP 134/78 Blood Pressure Location Lt brachial Position Sitting Pulse 69 Pulse Source Pulse Oximeter Pulse Oximetry (%) 97 Oxygen Delivery Method Room Air Intake Visit Reasons: PE Intake Note: Pt is here today for PE. Allergies amlodipine Allergy (Unknown, Verified 12/16/23 11:03) edema lisinopril Allergy (Unknown, Verified 12/16/23 11:03) Cough hydrochlorothiazide [Maxzide] Adverse Reaction (Intermediate, Verified 12/16/23 11:03) Urinary incontinence triamterene [Maxzide] Adverse Reaction (Unknown, Verified 12/16/23 11:03) urinary incontinence, increased urination Medication List - Last Reconciled 12/16/23 by Shruthi Patel MD acetaminophen 650 mg (2 x 325 mg) PO Q6H PRN 30 days amoxicillin 2,000 mg (4 x 500 mg) PO ONCE 1 day estradiol 0.01%(0.1mg/gram) (Estrace) 1 g vaginal 3XW hydralazine 50 mg PO BID ketoconazole 2% 1 appl topical DAILY levothyroxine 75 mcg PO QAM multivitamin 1 tab PO DAILY olmesartan-hydrochlorothiazide 40-25 mg 1 tab PO DAILY potassium chloride ER 20 mEq PO DAILY simvastatin 20 mg PO BEDTIME Tobacco use date assessed: 12/16/23 Fall risk assessment: No Falls in past year Last assessed Fall Risk: 12/16/23 Dental Screening Dental Screen Date: 06/16/23 HPI PE HPI Details Pt presents for PE. PFSH Medical History Osteoarthritis of left knee Arthritis Skin cancer Epidermal cyst Urinary frequency Knee pain Chronic kidney disease (CKD) Thyroid nodule Hypothyroidism Renal cyst Hematuria, microscopic Hyperlipidemia Hypertension Surgical History History of excision of epidermal inclusion cyst (~09/29/22) H/O colonoscopy Family History Father Unknown family medical history Mother Unknown family medical history Social History Household Members: None Housing: House Are you a primary manager medicare to a significant other at home: No Do you presently have visiting nurse or other home services: No Alcohol intake: never Patient Tobacco Use Status: Never used Tobacco e-Cigarette/Vaping Use: Never Used service: No Current occupational status: retired Current occupation: right handed Cognitive needs: No Hearing needs: No Vision needs: Yes Questionnaire PHQ-9 Over the last 2 weeks, how often have you been bothered by any of the following problems? 1. Little interest or pleasure in doing things: not at all 2. Feeling down, depressed, or hopeless: not at all 3. Trouble falling or staying asleep, or sleeping too much: not at all 4. Feeling tired or having little energy: not at all 5. Poor appetite or overeating: not at all 6. Feeling bad about yourself - or that you are a failure or have let yourself or your family down: not at all 7. Trouble concentrating on things, such as reading the newspaper or watching television: not at all 8. Moving or speaking so slowly that other people could have noticed. Or the opposite - being so fidgety or restless that you have been moving around a lot more than usual: not at all 9. Thoughts that you would be better off or of hurting yourself in some way: not at all Total score: 0 Depression Screening Interpretation: Negative Depression Screening Done: Yes Source: Developed by Drs. Kamran Lowe, Manda Leslie, Issac Banks and colleagues, with an educational delaney from [employer]. Thrive Questionnaire Date Thrive assessed: 12/16/23 I am a: Patient What is your living situation today?: I have a steady place to live Within the past 12 months, did the food you bought not last and you didn't have the money to get more?: Never true Within the past 12 months, did you worry whether your food would run out before you got money to buy more?: Never true Do you have trouble paying for medicines?: No Do you have trouble getting transportation to medical appointments?: No Do you have trouble paying your heating and electricity bill?: No Do you have trouble taking care of your child, family member or friend?: No Do you have trouble with day-to-day activities such as bathing, preparing meals, shopping, managing finances, etc.?: No Are you currently unemployed and looking for a job?: No Are you interested in more education?: No Please select the resources that you would like help with: Housing/Skilled Nursing Currently or been in a relationship where the following occur: No concerns reported THRIVE Score: 0 AUDIT C Alcohol Use Questionnaire (AUDIT-C) 1. How often do you have a drink containing alcohol?: Never Total Score: 0 RENATO-7 AMB Questionnaire RENATO-7 Date RENATO - 7 assessed: 12/16/23 Feeling nervous, anxious, or on edge: 0 = Not at all Not being able to stop or control worryin = Not at all Worrying too much about different things: 0 = Not at all Trouble relaxin = Not at all Being so restless that it is hard to sit still: 0 = Not at all Becoming easily annoyed or irritable: 0 = Not at all Feeling afraid as if something awful might happen: 0 = Not at all Total RENATO-7 score (0-4 normal; 5-9 mild; 10-14 moderate; 15-21 severe): 0 Source: Developed by Drs. Kamran Lowe, Manda Leslie, Issac Banks and colleagues, with an educational delaney from [employer]. Review of Systems Const All systems reviewed & are unremarkable except as noted in HPI and below Eyes Reports no additional complaints ENT Reports no additional complaints Card Reports no additional complaints Resp Reports no additional complaints GI Reports no additional complaints Reports no additional complaints Physical exam (Primary Care) Vital Signs: Last Vital Signs Pulse 69 12/16/23 10:57 BP 134/78 12/16/23 10:57 Pulse Ox 97 12/16/23 10:57 Oxygen Delivery Method Room Air 12/16/23 10:57 BMI result Body Mass Index 34.6 Tobacco/Smoking Status: Tobacco use Status Tobacco use date assessed 12/16/23 12/16/23 11:08 Patient Tobacco Use Status Never used Tobacco 12/16/23 11:08 e-Cigarette/Vaping Use Never Used 12/16/23 10:58 PHQ-9: PHQ-9 Score PHQ-9: Total score 0 12/16/23 11:08 Depression Screening Interpretation: Negative Thrive Assessment: Date of Thrive Assessment Date Thrive assessed 12/16/23 12/16/23 11:08 Currently or been in a relationship where the following occur: No concerns reported Const General: no acute distress HENMT Head: Yes normal to inspection Mouth: Normal oral and palatal mucosa present Eyes General: appearance normal, both eyes and all related structures Resp Effort & Inspection: normal respiratory effort Auscultation: clear to auscultation bilaterally Cardio Rhythm: regular rhythm Heart sounds: S1 normal heart sound present and S2 normal heart sound present GI Inspection: Yes normal to inspection Palpation (GI): Soft to palpation Percussion: Yes normal to percussion Auscultation: normal bowel sounds Assessment and Plan Assessment & Plan (1) Postmenopausal: Code(s): Z78.0 - Asymptomatic menopausal state Plan: check DEXA (2) Hypothyroidism: Code(s): E03.9 - Hypothyroidism, unspecified Plan: Continue levothyroxine (3) Chronic kidney disease (CKD): Comment: Stable renal function, follow-up with nephrology Code(s): N18.9 - Chronic kidney disease, unspecified Plan: Avoid nephrotoxins monitor renal function (4) Annual physical exam: Code(s): Z00.00 - Encounter for general adult medical examination without abnormal findings Plan: Well-balanced diet regular physical activity discussed with the patient (5) Hyperlipidemia: Code(s): E78.5 - Hyperlipidemia, unspecified Plan: Continue statin (6) Hypokalemia: Code(s): E87.6 - Hypokalemia Plan: Patient has not been compliant with potassium supplement. Risk of hypoglycemia discussed with the patient including NM or sudden . She has been taking 40 mEq of potassium for the last week BMP will be checked today in 1 month and 6 months. Orders: Orders XR DEXA axial skeleton Today Z78.0 - Asymptomatic menopausal state Basic Metabolic Panel 1 Month E03.9 - Hypothyroidism, unspecified, E78.5 - Hyperlipidemia, unspecified, N18.9 - Chronic kidney disease, unspecified, R73.9 - Hyperglycemia, unspecified, Z00.00 - Encounter for general adult medical examination without abnormal findings Comprehensive [place]. Panel Fast 1 Year E03.9 - Hypothyroidism, unspecified, E78.5 - Hyperlipidemia, unspecified, N18.9 - Chronic kidney disease, unspecified, R73.9 - Hyperglycemia, unspecified, Z00.00 - Encounter for general adult medical examination without abnormal findings TSH reflex Free T4 1 Year E03.9 - Hypothyroidism, unspecified, E78.5 - Hyperlipidemia, unspecified, N18.9 - Chronic kidney disease, unspecified, R73.9 - Hyperglycemia, unspecified, Z00.00 - Encounter for general adult medical examination without abnormal findings Complete Blood Count Auto Diff 1 Year E03.9 - Hypothyroidism, unspecified, E78.5 - Hyperlipidemia, unspecified, N18.9 - Chronic kidney disease, unspecified, R73.9 - Hyperglycemia, unspecified, Z00.00 - Encounter for general adult medical examination without abnormal findings Basic Metabolic Panel 6 Months E03.9 - Hypothyroidism, unspecified, E78.5 - Hyperlipidemia, unspecified, N18.9 - Chronic kidney disease, unspecified, R73.9 - Hyperglycemia, unspecified, Z00.00 - Encounter for general adult medical examination without abnormal findings Lipid Panel 1 Year E03.9 - Hypothyroidism, unspecified, E78.5 - Hyperlipidemia, unspecified, N18.9 - Chronic kidney disease, unspecified, R73.9 - Hyperglycemia, unspecified, Z00.00 - Encounter for general adult medical examination without abnormal findings Hemoglobin A1c 1 Year E03.9 - Hypothyroidism, unspecified, E78.5 - Hyperlipidemia, unspecified, N18.9 - Chronic kidney disease, unspecified, R73.9 - Hyperglycemia, unspecified, Z00.00 - Encounter for general adult medical examination without abnormal findings Microalbumin, Random (w Creat) 1 Year E03.9 - Hypothyroidism, unspecified, E78.5 - Hyperlipidemia, unspecified, N18.9 - Chronic kidney disease, unspecified, R73.9 - Hyperglycemia, unspecified, Z00.00 - Encounter for general adult medical examination without abnormal findings Coding Level of Care Code Est Pt Prev Care >65y(69663) Diagnoses Postmenopausal Z78.0 Hypothyroidism E03.9 Chronic kidney disease (CKD) N18.9 Annual physical exam Z00.00 Hyperlipidemia E78.5 Hypokalemia E87.6
== END 2023-12-16 11:47 | disposition home or self-care (01) ==
PROVIDERS: PCP Internal Medicine; Visit Provider Internal Medicine
DX: Z00.00 Encounter for general adult medical examination without abnormal findings (principal); Z78.0 Asymptomatic menopausal state; E03.9 Hypothyroidism, unspecified; N18.9 Chronic kidney disease, unspecified; E78.5 Hyperlipidemia, unspecified; E87.6 Hypokalemia
CPT/HCPCS: 99397

== ENCOUNTER 2023-12-16 11:43 | Outpatient (REF) | payer MEDICARE, SELFPAY ==
[2023-12-16 13:17] LABS: MANUAL DIFF FLAG NO
[2023-12-16 13:23] LABS: Basophils Absolute Auto 0.1 X10*3/uL (0.0-0.2); Basophils Percent Auto 0.7 % (0-2); Eosinophils Absolute Auto 0.2 X10*3/uL (0.0-0.4); Eosinophils Percent Auto 2.3 % (0-4); Hematocrit 40.4 % (37.0-47.0); Hemoglobin 13.2 g/dl (12.0-16.0); Imm Gran Abs Auto 0.03 X10*3/uL (0.00-0.03); Imm Gran Pct Auto 0.4 % (0.0-0.4); Lymphocytes Absolute Auto 1.8 X10*3/uL (1.2-4.9); Lymphocytes Percent Auto 23.4 % (20-40); Mean Corpuscular HGB Conc 32.7 g/dl (31.0-35.0); Mean Corpuscular Hemoglobin 28.1 pg (27.0-33.0); Monocytes Absolute Auto 0.7 X10*3/uL (0.1-1.2); Monocytes Percent Auto 8.7 % (2-11); Neutrophils Absolute Auto 4.9 x10*3/uL (2.0-8.3); Neutrophils Percent Auto 64.5 % (45-73); Platelet Count 312 X10*3/uL (160-400); Red Cell Distribution Width 13.5 % (11.0-16.0); White Blood Count 7.6 X10*3/uL (4.8-10.8)
[2023-12-16 13:30] LABS: Anion Gap 11 (12-20); Blood Urea Nitrogen 17 mg/dL (9-16); Calcium 10.3 mg/dL (8.4-10.2); Carbon Dioxide 25 mmol/L (22-29); Chloride 108 mmol/L (96-108); Estimated Glomerular Filt Rate > 60; Glucose Random 61 mg/dL (60-115); Potassium 3.3 mmol/L (3.3-5.1); Sodium 141 mmol/L (135-145)
== END 2023-12-16 11:44 | disposition home or self-care (01) ==
LOC: HO.HMGCLDS 11:43
PROVIDERS: PCP Internal Medicine; Visit Provider Internal Medicine
DX: E03.9 Hypothyroidism, unspecified (principal); E87.6 Hypokalemia
CPT/HCPCS: 36415; 80048; 85025

== ENCOUNTER 2024-01-10 13:19 | Outpatient (REF) | payer MEDICARE, SELFPAY ==
--- NOTE | ~2024-01-10 | MM_ITS ---
EXAMINATION: BONE DENSITOMETRY CLINICAL INDICATION: Menopause. COMPARISON: This is the patient's baseline examination. TECHNIQUE: Using a [employer]NC[employer]M DXA System (software version: 13.1) manufactured by [employer], dual-energy x-ray absorptiometry was performed of the lumbar spine and left hip. The images are of good technical quality. Summary results are attached. FINDINGS: LEFT FEMUR, NECK: BMD 0.868 g/cm2, Z-score 0.4, T-score -1.2, osteopenia. LEFT FEMUR, TOTAL: BMD 0.989 g/cm2, Z-score 1.3, T-score -0.1, normal. AP SPINE L1-L4: BMD 1.110 g/cm2, Z-score 0.7, T-score -0.6, normal. IDENTIFIED RISK FACTORS: Menopause. HISTORY OF FRACTURE: None listed. MEDICATIONS: Multivitamin. MM/XR DEXA axial skeleton IMPRESSION: 1. DIAGNOSIS: Osteopenia based on the lowest T-score value of -1.2 in the femoral neck applying World Health Organization criteria. 2. 10-YEAR FRACTURE RISK PREDICTION, FRAX: Major osteoporotic fracture (clinical spine, forearm, hip or shoulder) 10.4%. Hip fracture 1.8%. 3. Treatment Recommendations: NOF guidelines recommend consideration for treatment in postmenopausal women and men age 50 and older presenting with the following: -A hip or vertebral (clinical or morphometric) fracture. -T-score less than or equal to -2.5 at the femoral neck or spine after appropriate evaluation to exclude secondary causes. -Low bone mass at the hip or spine and a 10-year fracture probability by FRAX of greater than or equal to 3% for hip fracture or greater than or equal to 20% for major osteoporotic fracture based on the [place] adapted WHO algorithm. 4. Other Recommendations: All treatment decisions require clinical judgment and consideration of individual patient factors, including patient preferences, comorbidities, previous drug use, risk factors not captured in the FRAX model (e.g. frailty, falls, vitamin D deficiency, increased bone turnover, interval significant decline in bone density) and possible under or overestimation of fracture risk by FRAX. Additional medical evaluation for secondary cause of low bone mineral density may be appropriate. FUTURE SCAN RECOMMENDATION: People with diagnosed cases of osteoporosis or at high risk for fracture should have regular bone mineral density tests. For patients eligible for Medicare, routine testing is allowed once every 2 years. The testing frequency can be increased to one year for patients who have rapidly progressing disease, those who are receiving or discontinuing medical therapy to restore bone mass, or have additional risk factors. Electronically signed by: Karl Matthews MD 01/12/2024 10:59 AM EDT
== END 2024-01-10 13:20 | disposition home or self-care (01) ==
LOC: HO.MAMMO 13:19
PROVIDERS: PCP Internal Medicine; Visit Provider Internal Medicine
DX: Z13.820 Encounter for screening for osteoporosis (principal); Z78.0 Asymptomatic menopausal state
CPT/HCPCS: 77080

== ENCOUNTER 2024-03-27 13:20 | Outpatient (REF) | payer MEDICARE, SELFPAY ==
[2024-03-27 16:43] LABS: Alanine Aminotransferase 19 U/L (0-31); Albumin Level 4.1 g/dL (3.5-5.0); Alkaline Phosphatase 66 U/L (39-117); Anion Gap 16 (12-20); Aspartate Amino Transferase 29 U/L (5-31); Bilirubin Total 0.3 mg/dL (0.0-1.0); Blood Urea Nitrogen 20 mg/dL (9-16); Calcium 10.9 mg/dL (8.4-10.2); Carbon Dioxide 26 mmol/L (22-29); Chloride 104 mmol/L (96-108); Estimated Glomerular Filt Rate > 60; Glucose Random 93 mg/dL (60-115); Potassium 3.3 mmol/L (3.3-5.1); Sodium 143 mmol/L (135-145); Total Protein 7.3 g/dL (6.5-8.0)
[2024-03-27 16:52] LABS: TSH reflex Free T4 1.32 uIU/mL (0.32-4.0)
== END 2024-03-27 13:21 | disposition home or self-care (01) ==
LOC: HO.HMGCLDS 13:20
PROVIDERS: PCP Internal Medicine; Visit Provider Internal Medicine
DX: E03.9 Hypothyroidism, unspecified (principal); E78.5 Hyperlipidemia, unspecified; I10 Essential (primary) hypertension; H26.9 Unspecified cataract
CPT/HCPCS: 36415; 80053; 84443; 99212

== ENCOUNTER 2024-03-27 13:20 | Outpatient (AMB) | payer MEDICARE, SELFPAY ==
[2024-03-27 13:21] VITALS: BP 110/66; PULSE 64; O2SAT 97; BMI 33.6
--- NOTE | 2024-03-27 13:21 | MHC.PC.OV ---
Vital Signs 03/27/24 13:21 Height 5 ft 1 in Weight 178 lb BMI 33.6 BP 110/66 Blood Pressure Location Lt brachial Position Sitting Pulse 64 Pulse Source Pulse Oximeter Pulse Oximetry (%) 97 Oxygen Delivery Method Room Air Intake Visit Reasons: Pre- Op Cataract Intake Note: Pt is here today for pre op visit. Pt is having cataract surgery on 04/02/[address] Arias. Allergies amlodipine Allergy (Unknown, Verified 12/16/23 11:03) edema lisinopril Allergy (Unknown, Verified 12/16/23 11:03) Cough hydrochlorothiazide [Maxzide] Adverse Reaction (Intermediate, Verified 12/16/23 11:03) Urinary incontinence triamterene [Maxzide] Adverse Reaction (Unknown, Verified 12/16/23 11:03) urinary incontinence, increased urination Medication List - Last Reconciled 03/27/24 by Shruthi Patel MD acetaminophen 650 mg (2 x 325 mg) PO Q6H PRN 30 days amoxicillin 2,000 mg (4 x 500 mg) PO ONCE 1 day estradiol 0.01%(0.1mg/gram) (Estrace) 1 g vaginal 3XW hydralazine 50 mg PO BID ketoconazole 2% 1 appl topical DAILY levothyroxine 75 mcg PO QAM multivitamin 1 tab PO DAILY olmesartan-hydrochlorothiazide 40-25 mg 1 tab PO DAILY potassium chloride ER 20 mEq PO DAILY simvastatin 20 mg PO BEDTIME Tobacco use date assessed: 12/16/23 Dental Screening Dental Screen Date: 06/16/23 HPI Pre- Op Cataract HPI Details Pt presents for preop for cataract surgery. HTN, hyperlipid, hypothyroid stable on meds. PFSH Medical History (Updated 03/27/24 @ 14:15 by Shruthi Patel MD) Osteoarthritis of left knee Arthritis Skin cancer Epidermal cyst Urinary frequency Knee pain Chronic kidney disease (CKD) Thyroid nodule Hypothyroidism Renal cyst Hematuria, microscopic Hyperlipidemia Hypertension Surgical History (Updated 03/27/24 @ 13:28 by QUINCY Gonzalez) History of knee replacement History of excision of epidermal inclusion cyst (~09/29/22) H/O colonoscopy Family History Father Unknown family medical history Mother Unknown family medical history Social History Household Members: None Housing: House Are you a primary post acute care nurse practitioner to a significant other at home: No Do you presently have visiting nurse or other home services: No Alcohol intake: never Patient Tobacco Use Status: Never used Tobacco e-Cigarette/Vaping Use: Never Used service: No Current occupational status: retired Current occupation: right handed Cognitive needs: No Hearing needs: No Vision needs: Yes Questionnaire Thrive Questionnaire Date Thrive assessed: 12/16/23 RENATO-7 AMB Questionnaire RENATO-7 Date RENATO - 7 assessed: 12/16/23 Source: Developed by Drs. Kamran Lowe, Manda Leslie, Issac Banks and colleagues, with an educational delaney from [employer]. Review of Systems Const All systems reviewed & are unremarkable except as noted in HPI and below ENT Reports no additional complaints Card Reports no additional complaints Resp Reports no additional complaints GI Reports no additional complaints Reports no additional complaints Physical exam (Primary Care) Vital Signs: Last Vital Signs Pulse 64 03/27/24 13:21 BP 110/66 03/27/24 13:21 Pulse Ox 97 03/27/24 13:21 Oxygen Delivery Method Room Air 03/27/24 13:21 BMI result Body Mass Index 33.6 Tobacco/Smoking Status: Tobacco use Status Tobacco use date assessed 12/16/23 03/27/24 13:22 Patient Tobacco Use Status Never used Tobacco 03/27/24 13:22 e-Cigarette/Vaping Use Never Used 03/27/24 13:22 Thrive Assessment: Date of Thrive Assessment Date Thrive assessed 12/16/23 03/27/24 13:22 Const General: no acute distress HENMT Ears: hearing grossly normal bilaterally Throat: Yes posterior oropharynx normal Eyes General: appearance normal, both eyes and all related structures Neck Neck: Yes supple Resp Effort & Inspection: normal respiratory effort Auscultation: clear to auscultation bilaterally Cardio Rhythm: regular rhythm Heart sounds: S1 normal heart sound present and S2 normal heart sound present GI Inspection: Yes normal to inspection Palpation (GI): Soft to palpation Percussion: Yes normal to percussion Auscultation: normal bowel sounds Coding Level of Care Code Est Pt Level 4 (21102) Diagnoses Hypertension I10 Hyperlipidemia E78.5 Hypothyroidism E03.9 Cataract H26.9 Assessment & Plan Assessment & Plan (1) Hypertension: Comment: f/u nephrology Code(s): I10 - Essential (primary) hypertension Category: Medical Plan: Continue current medications check comprehensive panel (2) Hyperlipidemia: Code(s): E78.5 - Hyperlipidemia, unspecified Category: Medical Plan: Continue statin (3) Hypothyroidism: Code(s): E03.9 - Hypothyroidism, unspecified Category: Medical Plan: Continue levothyroxine (4) Cataract: Code(s): H26.9 - Unspecified cataract Category: Medical Plan: Patient is medically cleared for cataract surgery Orders: Orders Comprehensive Met. Panel Today E78.5 - Hyperlipidemia, unspecified, I10 - Essential (primary) hypertension TSH reflex Free T4 Today E03.9 - Hypothyroidism, unspecified Comprehensive [place]. Panel Fast 4 Months E78.5 - Hyperlipidemia, unspecified, I10 - Essential (primary) hypertension Complete Blood Count Auto Diff 4 Months E78.5 - Hyperlipidemia, unspecified, I10 - Essential (primary) hypertension
== END 2024-03-27 14:08 | disposition home or self-care (01) ==
PROVIDERS: PCP Internal Medicine; Visit Provider Internal Medicine
DX: I10 Essential (primary) hypertension (principal); E78.5 Hyperlipidemia, unspecified; E03.9 Hypothyroidism, unspecified; H26.9 Unspecified cataract

== ENCOUNTER 2024-07-18 07:27 | Outpatient (REF) | payer MEDICARE, SELFPAY ==
--- OUTSIDE RECORDS SUMMARY | 2024-07-18 07:31 | XMS_ITS | Clinical Summary ---
Author Organization [facility] Facility Address [address] [address] Care Team Providers Care Production Line Solderer Name Role Phone Shruthi Patel MD Primary Care Provider [phone] Allergies Active Allergy Reactions Criticality Noted Date Comments Lisinopril 08/04/2020 Medications acetaminophen (TYLENOL) 325 MG tablet Take 2 tablets by mouth 3 (three) times a day Active levothyroxine sodium (TIROSINT) 75 MCG capsule Take 1 capsule by mouth 1 (one) time each day Active simvastatin (ZOCOR) 20 MG tablet Take 1 tablet by mouth 1 (one) time each day Active olmesartan-hydr oCHLOROthiazide (BENICAR HCT) 40-25 MG per tabletIndicatio ns:Chronic kidney disease stage 2,Hypertensive disorder Take 1 tablet by mouth 1 (one) time each day 90 tablet 3 10/03/2023 5 Active hydrALAZINE 50 MG tabletIndicatio ns:Chronic kidney disease stage 2,Hypertensive disorder Take 1 tablet (50 mg total) by mouth every morning and evening 180 tablet 3 10/03/2023 5 Active Active Problems Problem Noted Date Diagnosed Date Chronic kidney disease stage 2 08/04/2020 Overview (10/03/2023): 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 Avoid Nephrotoxins Optimize BP control On Olmesartan Assessment & Plan (10/03/2023 10:12 PM EDT): Creat 0.83, eGFR 57 as of July 2023 Normal Lytes/Ca No Anemia Checking Urine alb/Creat ratio Cyst of kidney 08/04/2020 Hyperlipidemia 08/04/2020 Hypertensive disorder 08/04/2020 Overview (10/03/2023): Follow low NA diet Avoid NSAIDs/Decongestant medications Target BP <120/80 Assessment & Plan (10/03/2023 10:14 PM EDT): Blood pressure is well controlled Taking Hydralazine 50 mg BID and Olmesartan-HCZ 40-35 QD NO Edema Both of these medications renewed for patient today No med changes made Contact dermatitis 05/12/2020 Rash and other nonspecific skin eruption 020 Family History Medical History Relation Comments Hypertension Child Heart disease Father Hypertension Father Hypertension Mother Kidney disease Mother Cancer Sibling 1 Hypertension Sibling 2 Relation Status Comments Child Father Mother Sibling 1 Sibling 2 Social History Tobacco Use Types Packs/Day Years Used Date Smoking Tobacco: Never Smokeless Tobacco: Never Tobacco Cessation:Counseling Given: Not Answered Alcohol Use Standard Drinks/Week Comments No 0 (1 standard drink = 0.6 oz pur e alcohol) Comments Unknown Sex and Gender Information Value Date Recorded Sex Assigned at Not on file Legal Sex Female 4:58 PM EST Gender Identity Not on file Sexual Orientation Not on file Last Filed Vital Signs Vital Sign Reading Time Taken Comments Blood Pressure 120/78 10/03/2023 11:10 AM EDT Pulse 70 10/03/2023 10:45 AM EDT Temperature - - Respiratory Rate - - Oxygen Saturation - - Inhaled Oxygen Concentration - - Weight 83 kg (183 lb) 10/03/2023 10:45 AM EDT Height 154.9 cm (5' 1 ) 04/07/2020 12:00 PM EST Body Mass Index 34.58 04/07/2020 12:00 PM EST Plan of Treatment Upcoming Encounters Date Type Department Care Team (Late st Contact Info) Description 10/03/2024 10:30 AM EDT Office Visit [facility] [address] [phone] Jenny Deng ARNP [address] [phone] Health Maintenance Due Date Last Done Comments Pneumococcal Vaccine: 65+ Ye ars (1 of 2 - PCV) 1951 Influenza Vaccine (#1) 2024 Hepatitis B Vaccine Aged Out No longe r eligible based on patient's age to complete this topic Insurance Care Teams Production Line Solderer Relationship Specialty Start Date End Date Shruthi Patel MD [address] [place] [address] PCP - General 05/26/20
--- OUTSIDE RECORDS SUMMARY | 2024-07-18 07:31 | XMS_ITS | Encounter Summary ---
Author Organization [facility] Address [address] [place] [address] Phone Care Team Providers Care Cooperer Name Role Phone Shruthi Patel MD Primary Care Provider [phone] Reason for Visit * Reason Comments Med Refill Encounter Details Date Type Department Care Team (Late Contact Info) Description 08/15/2023 Refill [facility] [address] [place] [address] Allen Manley MD Social History Tobacco Use Types Packs/Day Years Used Date Smoking Tobacco: Never Smokeless Tobacco: Never Alcohol Use Standard Drinks/Week Comments No 0 (1 standard drink = 0.6 oz pur e alcohol) Comments Unknown Sex and Gender Information Value Date Recorded Sex Assigned at Not on file Legal Sex Female 4:58 PM EST Gender Identity Not on file Sexual Orientation Not on file documented as of this encounter Plan of Treatment Upcoming Encounters Date Type Department Care Team (Late st Contact Info) Description 10/03/2024 10:30 AM EDT Office Visit [facility] [address] [facility] [address] [place] [address] Jenny Deng ARNP [address] [facility] [address] [place] [address] documented as of this encounter Visit Diagnoses Not on filedocumented in this encounter Care Teams Cooperer Relationship Specialty Start Date End Date Shruthi Patel MD [address] [place] [address] PCP - General 05/26/20 documented as of this encounter
[2024-07-18 10:43] LABS: MANUAL DIFF FLAG NO
[2024-07-18 10:56] LABS: Basophils Absolute Auto 0.1 X10*3/uL (0.0-0.2); Basophils Percent Auto 0.7 % (0-2); Eosinophils Absolute Auto 0.2 X10*3/uL (0.0-0.4); Hematocrit 40.1 % (37.0-47.0); Imm Gran Abs Auto 0.03 X10*3/uL (0.00-0.03); Imm Gran Pct Auto 0.4 % (0.0-0.4); Lymphocytes Absolute Auto 1.4 X10*3/uL (1.2-4.9); Lymphocytes Percent Auto 18.5 % (20-40); Mean Corpuscular HGB Conc 32.4 g/dl (31.0-35.0); Mean Corpuscular Hemoglobin 28.6 pg (27.0-33.0); Mean Corpuscular Volume 88.1 fL (80.0-98.0); Mean Platelet Volume 10.4 fL (9.4-12.3); Monocytes Absolute Auto 0.6 X10*3/uL (0.1-1.2); Neutrophils Absolute Auto 5.1 x10*3/uL (2.0-8.3); Neutrophils Percent Auto 69.4 % (45-73); Platelet Count 314 X10*3/uL (160-400); Red Blood Count 4.55 X10*6/uL (4.20-5.50); Red Cell Distribution Width 13.9 % (11.0-16.0); White Blood Count 7.4 X10*3/uL (4.8-10.8)
[2024-07-18 11:36] LABS: Alanine Aminotransferase 20 U/L (0-31); Alkaline Phosphatase 64 U/L (39-117); Anion Gap 10 (12-20); Aspartate Amino Transferase 29 U/L (5-31); Bilirubin Total 0.7 mg/dL (0.0-1.0); Blood Urea Nitrogen 24 mg/dL (9-16); Calcium 9.8 mg/dL (8.4-10.2); Carbon Dioxide 28 mmol/L (22-29); Chloride 108 mmol/L (96-108); Estimated Glomerular Filt Rate 59; Glucose Fasting 95 mg/dL (60-99); Potassium 3.7 mmol/L (3.3-5.1); Sodium 142 mmol/L (135-145); Total Protein 7.4 g/dL (6.5-8.0)
== END 2024-07-18 07:28 | disposition home or self-care (01) ==
LOC: HO.HMGCLDS 07:27
PROVIDERS: PCP Internal Medicine; Visit Provider Internal Medicine
DX: E78.5 Hyperlipidemia, unspecified (principal); I10 Essential (primary) hypertension
CPT/HCPCS: 36415; 80053; 85025

== ENCOUNTER 2024-07-23 11:01 | Outpatient (AMB) | payer MEDICARE, SELFPAY ==
[2024-07-23 11:31] VITALS: BP 120/80; PULSE 74; TEMP 36.7; O2SAT 95; BMI 35.0
--- NOTE | 2024-07-23 11:31 | A.OFFPC_ITS ---
Vital Signs 07/23/24 11:31 Height 5 ft 1 in Weight 185 lb BMI 35.0 BP 120/80 Blood Pressure Location Lt brachial Position Sitting Pulse 74 Pulse Source Pulse Oximeter Temp 98.0 F Temp Source Oral Pulse Oximetry (%) 95 Intake Visit Reasons: 4 month follow up Intake Note: pt is here for 4 mon f/up Multi Disciplined Language Analyst Required: No Accompanied by: Self / Same As Patient Allergies amlodipine Allergy (Unknown, Verified 07/23/24 11:31) edema lisinopril Allergy (Unknown, Verified 07/23/24 11:31) Cough hydrochlorothiazide [Maxzide] Adverse Reaction (Intermediate, Verified 07/23/24 11:31) Urinary incontinence triamterene [Maxzide] Adverse Reaction (Unknown, Verified 07/23/24 11:31) urinary incontinence, increased urination Medication List - Last Reconciled 07/23/24 by Shruthi Patel MD acetaminophen 650 mg (2 x 325 mg) PO Q6H PRN 30 days amoxicillin 2,000 mg (4 x 500 mg) PO ONCE 1 day estradiol 0.01%(0.1mg/gram) (Estrace) 1 g vaginal 3XW hydralazine 50 mg PO BID ketoconazole 2% 1 appl topical DAILY levothyroxine 75 mcg PO QAM multivitamin 1 tab PO DAILY olmesartan-hydrochlorothiazide 40-25 mg 1 tab PO DAILY potassium chloride ER 30 mEq (3 x 10 mEq) PO DAILY simvastatin 20 mg PO BEDTIME Tobacco use date assessed: 07/23/24 Fall risk assessment: No Falls in past year Last assessed Fall Risk: 07/23/24 Dental Screening Dental Screen Date: 07/23/24 Did you have a dental visit in the last 12 months?: Yes Did you have a dental problem in the last 6 months where you did not have access to dental care?: No Was dental information given to patient?: Patient has dentist HPI 4 month follow up HPI Details Pt presents for f/u HTN, hyperlipid,hypothyroid, stable on meds. PFSH Medical History Osteoarthritis of left knee Arthritis Skin cancer Epidermal cyst Urinary frequency Knee pain Chronic kidney disease (CKD) Thyroid nodule Hypothyroidism Renal cyst Hematuria, microscopic Hyperlipidemia Hypertension Surgical History History of knee replacement History of excision of epidermal inclusion cyst (~09/29/22) H/O colonoscopy Family History Father Unknown family medical history Mother Unknown family medical history Social History Household Members: None Housing: House Are you a primary assistant child care teacher to a significant other at home: No Do you presently have visiting nurse or other home services: No Alcohol intake: never Patient Tobacco Use Status: Never used Tobacco e-Cigarette/Vaping Use: Never Used service: No Current occupational status: retired Current occupation: right handed Cognitive needs: No Hearing needs: No Vision needs: Yes Questionnaire PHQ-9 Over the last 2 weeks, how often have you been bothered by any of the following problems? 1. Little interest or pleasure in doing things: not at all 2. Feeling down, depressed, or hopeless: not at all 3. Trouble falling or staying asleep, or sleeping too much: not at all 4. Feeling tired or having little energy: not at all 5. Poor appetite or overeating: not at all 6. Feeling bad about yourself - or that you are a failure or have let yourself or your family down: not at all 7. Trouble concentrating on things, such as reading the newspaper or watching television: not at all 8. Moving or speaking so slowly that other people could have noticed. Or the opposite - being so fidgety or restless that you have been moving around a lot more than usual: not at all 9. Thoughts that you would be better off or of hurting yourself in some way: not at all Total score: 0 Depression Screening Interpretation: Negative Depression Screening Done: Yes 23453 - PHQ-9 Billing: Yes Source: Developed by Drs. Kamran Lowe, Manda Leslie, Issac Banks and colleagues, with an educational delaney from [employer]. Thrive Questionnaire Date Thrive assessed: 07/23/24 I am a: Patient What is your living situation today?: I have a steady place to live Within the past 12 months, did the food you bought not last and you didn't have the money to get more?: Never true Within the past 12 months, did you worry whether your food would run out before you got money to buy more?: I choose not to answer this question Do you have trouble paying for medicines?: No Do you have trouble getting transportation to medical appointments?: No Do you have trouble paying your heating and electricity bill?: No Do you have trouble taking care of your child, family member or friend?: No Do you have trouble with day-to-day activities such as bathing, preparing meals, shopping, managing finances, etc.?: No Are you currently unemployed and looking for a job?: No Are you interested in more education?: No Please select the resources that you would like help with: None Currently or been in a relationship where the following occur: No concerns reported THRIVE Score: 0 AUDIT C Alcohol Use Questionnaire (AUDIT-C) 1. How often do you have a drink containing alcohol?: Monthly or less 2. How many drinks containing alcohol do you have on a typical day when you are drinking?: 1 or 2 3. How often do you have six or more drinks on one occasion?: Never Total Score: 1 Score Reviewed/Action Taken: Yes RENATO-7 AMB Questionnaire RENATO-7 Date RENATO - 7 assessed: 07/23/24 Feeling nervous, anxious, or on edge: 0 = Not at all Not being able to stop or control worryin = Not at all Worrying too much about different things: 0 = Not at all Trouble relaxin = Not at all Being so restless that it is hard to sit still: 0 = Not at all Becoming easily annoyed or irritable: 0 = Not at all Feeling afraid as if something awful might happen: 0 = Not at all Total RENATO-7 score (0-4 normal; 5-9 mild; 10-14 moderate; 15-21 severe): 0 Source: Developed by Drs. Kamran Lowe, Manda Leslie, Issac Banks and colleagues, with an educational delaney from [employer]. RENATO-7 Assessment Billing RENATO-7 Assessment Tool: RENATO-7 Assessment 84424 Review of Systems Const All systems reviewed & are unremarkable except as noted in HPI and below Reports no additional complaints Eyes Reports no additional complaints ENT Reports no additional complaints Card Reports no additional complaints Resp Reports no additional complaints GI Reports no additional complaints Reports no additional complaints Physical exam (Primary Care) Vital Signs: Last Vital Signs Temp 98.0 F 07/23/24 11:31 Pulse 74 07/23/24 11:31 BP 120/80 07/23/24 11:31 Pulse Ox 95 07/23/24 11:31 BMI result Body Mass Index 35.0 Tobacco/Smoking Status: Tobacco use Status Tobacco use date assessed 07/23/24 07/23/24 11:33 Patient Tobacco Use Status Never used Tobacco 07/23/24 11:33 e-Cigarette/Vaping Use Never Used 07/23/24 11:33 PHQ-9: PHQ-9 Score PHQ-9: Total score 0 07/23/24 12:09 Depression Screening Interpretation: Negative Thrive Assessment: Date of Thrive Assessment Date Thrive assessed 07/23/24 07/23/24 11:33 Currently or been in a relationship where the following occur: No concerns reported Const General: no acute distress HENMT Head: Yes normal to inspection Ears: hearing grossly normal bilaterally Face and sinus: Yes normal facial exam Throat: Yes posterior oropharynx normal Eyes General: appearance normal, both eyes and all related structures Neck Neck: Yes no lymphadenopathy and Yes supple Resp Effort & Inspection: normal respiratory effort Auscultation: clear to auscultation bilaterally Cardio Rhythm: regular rhythm Heart sounds: S1 normal heart sound present and S2 normal heart sound present GI Inspection: Yes normal to inspection Palpation (GI): Soft to palpation Percussion: Yes normal to percussion Auscultation: normal bowel sounds Coding Level of Care Code Est Pt Level 4 (40641) Diagnoses Chronic kidney disease (CKD) N18.9 Hypertension I10 Hypothyroidism E03.9 Hyperlipidemia E78.5 Additional Codes RENATO-7 Assessment Billing - RENATO-7 Assessment Tool: RENATO-7 Assessment 99591 ([id number]) PHQ-9 - 89263 - PHQ-9 Billing: Yes ([id number]) Assessment & Plan Assessment & Plan (1) Chronic kidney disease (CKD): Comment: Stable renal function, follow-up with nephrology Code(s): N18.9 - Chronic kidney disease, unspecified Category: Medical Plan: Monitor renal function avoid nephrotoxins (2) Hypertension: Comment: f/u nephrology Code(s): I10 - Essential (primary) hypertension Category: Medical Plan: Continue current medications (3) Hypothyroidism: Code(s): E03.9 - Hypothyroidism, unspecified Category: Medical Plan: Continue levothyroxine (4) Hyperlipidemia: Code(s): E78.5 - Hyperlipidemia, unspecified Category: Medical Plan: Continue statin
--- OUTSIDE RECORDS SUMMARY | 2024-07-23 12:27 | XMS_ITS | Encounter Summary ---
Author Organization [facility] Address [address] [place] [address] Phone Care Team Providers Care Marine Machinist Name Role Phone Shruthi Patel MD Primary Care Provider [phone] Reason for Visit * Reason Comments Med Refill Encounter Details Date Type Department Care Team (Late Contact Info) Description 08/15/2023 Refill [facility] [address] [place] [address] Allen Manley MD Social History [...] Visit [facility] [address] [address] Jenny Deng ARNP [address] [facility] [address] [place] [address] documented as of this encounter Visit Diagnoses Not on filedocumented in this encounter Care Teams Marine Machinist Relationship Specialty Start Date End Date Shruthi Patel MD [address] [place] [address] PCP - General 05/26/20 documented as of this encounter
--- OUTSIDE RECORDS SUMMARY | 2024-07-23 12:27 | XMS_ITS | Clinical Summary ---
Author Organization [facility] Address [address] [address] Care Team Providers Care Jointer Machine Name Role Phone Shruthi Patel MD Primary Care Provider [phone] Allergies Active Allergy Reactions Criticality Noted Date [...] [facility] [address] [address] Jenny Deng ARNP [address] [phone] Health Maintenance Due Date Last Done Comments Pneumococcal Vaccine: 65+ Ye ars (1 of 2 - PCV) 1951 Influenza Vaccine (#1) 2024 Hepatitis B Vaccine Aged Out No longe r eligible based on patient's age to complete this topic Insurance Care Teams Jointer Machine Relationship Specialty Start Date End Date Shruthi Patel MD [address] [place] [address] PCP - General 05/26/20
== END 2024-07-23 12:35 | disposition home or self-care (01) ==
PROVIDERS: PCP Internal Medicine; Visit Provider Internal Medicine
DX: I12.9 Hypertensive chronic kidney disease with stage 1 through stage 4 chronic kidney disease, or unspecified chronic kidney disease (principal); N18.9 Chronic kidney disease, unspecified; E03.9 Hypothyroidism, unspecified; E78.5 Hyperlipidemia, unspecified

== ENCOUNTER → 2024-07-23 11:01 | Outpatient (BNVA) | payer MEDICARE, SELFPAY | PROVIDERS: PCP Internal Medicine; Visit Provider Internal Medicine | DX: I12.9 Hypertensive chronic kidney disease with stage 1 through stage 4 chronic kidney disease, or unspecified chronic kidney disease (principal); N18.9 Chronic kidney disease, unspecified; E03.9 Hypothyroidism, unspecified; E78.5 Hyperlipidemia, unspecified | CPT/HCPCS: 96127; 99212 ==

== ENCOUNTER 2024-10-16 09:20 | Outpatient (REF) | payer MEDICARE, SELFPAY ==
--- OUTSIDE RECORDS SUMMARY | 2024-10-16 10:18 | XMS_ITS | Encounter Summary ---
Author Organization [facility] Address [address] [place] [address] Phone Care Team Providers Care Machine Adjuster Leader Name Role Phone Shruthi Patel MD Primary Care Provider [phone] Reason for Visit * Reason Comments Med Refill Encounter Details Date Type Department Care Team (Late Contact Info) Description 08/15/2023 Refill [facility] [address] [place] [address] Allen Manley MD Social History [...] Care Team (Late st Contact Info) Description 10/02/2025 10:30 AM EDT Office Visit [facility] [address] [facility] [address] [place] [address] Jenny Deng ARNP [address] [facility] [address] [place] [address] documented as of this encounter Visit Diagnoses Not on filedocumented in this encounter Care Teams Machine Adjuster Leader Relationship Specialty Start Date End Date Shruthi Patel MD [address] [place] [address] PCP - General 05/26/20 documented as of this encounter
[2024-10-16 13:11] LABS: MANUAL DIFF FLAG NO
[2024-10-16 13:30] LABS: Basophils Absolute Auto 0.1 X10*3/uL (0.0-0.2); Basophils Percent Auto 0.8 % (0-2); Eosinophils Absolute Auto 0.2 X10*3/uL (0.0-0.4); Eosinophils Percent Auto 2.7 % (0-4); Hematocrit 40.7 % (37.0-47.0); Hemoglobin 13.2 g/dl (12.0-16.0); Imm Gran Abs Auto 0.03 X10*3/uL (0.00-0.03); Imm Gran Pct Auto 0.5 % (0.0-0.4); Lymphocytes Absolute Auto 1.4 X10*3/uL (1.2-4.9); Lymphocytes Percent Auto 20.9 % (20-40); Mean Corpuscular HGB Conc 32.4 g/dl (31.0-35.0); Mean Corpuscular Hemoglobin 28.4 pg (27.0-33.0); Mean Corpuscular Volume 87.5 fL (80.0-98.0); Mean Platelet Volume 10.3 fL (9.4-12.3); Monocytes Absolute Auto 0.6 X10*3/uL (0.1-1.2); Monocytes Percent Auto 9.1 % (2-11); Neutrophils Absolute Auto 4.4 x10*3/uL (2.0-8.3); Platelet Count 303 X10*3/uL (160-400); Red Blood Count 4.65 X10*6/uL (4.20-5.50); Red Cell Distribution Width 13.7 % (11.0-16.0); White Blood Count 6.6 X10*3/uL (4.8-10.8)
[2024-10-16 14:05] LABS: Anion Gap 11 (12-20); Blood Urea Nitrogen 20 mg/dL (9-16); Calcium 10.4 mg/dL (8.4-10.2); Carbon Dioxide 28 mmol/L (22-29); Chloride 106 mmol/L (96-108); Estimated Glomerular Filt Rate > 60; Potassium 3.4 mmol/L (3.3-5.1); Sodium 142 mmol/L (135-145)
[2024-10-16 14:30] LABS: Creatinine Urine 64.64 mg/dL; Microalbum/Creatinine Ratio Ur 10.8 ug/mg cr (<30); Total Protein Urine Random < 7 mg/dL (<12)
[2024-10-16 14:31] LABS: Parathyroid Hormone Intact 75.7 pg/mL (8.7-77.1)
== END 2024-10-16 09:21 | disposition home or self-care (01) ==
LOC: HO.HMGCLDS 09:20
PROVIDERS: PCP Internal Medicine; Visit Provider Internal Medicine Nephrology
DX: I12.9 Hypertensive chronic kidney disease with stage 1 through stage 4 chronic kidney disease, or unspecified chronic kidney disease (principal); N18.2 Chronic kidney disease, stage 2 (mild)
CPT/HCPCS: 36415; 80051; 82043; 82310; 82565; 82570; 83735; 83970; 84156; 84520; 85025

== ENCOUNTER 2025-02-07 06:09 | Outpatient (REF) | payer MEDICARE, SELFPAY ==
--- OUTSIDE RECORDS SUMMARY | 2025-02-07 06:11 | XMS_ITS | Encounter Summary ---
Author Organization [facility] Address [address] [place] [address] Phone Care Team Providers Care Web Content Writer Name Role Phone Shruthi Paetl MD Primary Care Provider [phone] Reason for Visit * Reason Comments Med Refill Encounter Details Date Type Department Care Team (Late Contact Info) Description 08/15/2023 Refill [facility] [address] [place] [address] Allen Manley MD Social History [...] [facility] [address] [address] Jenny Deng ARNP [address] [facility] [address] [place] [address] documented as of this encounter Visit Diagnoses Not on filedocumented in this encounter Care Teams Web Content Writer Relationship Specialty Start Date End Date Shruthi Patel MD [address] [place] [address] PCP - General 05/26/20 documented as of this encounter
--- OUTSIDE RECORDS SUMMARY | 2025-02-07 06:11 | XMS_ITS | Clinical Summary ---
Author Organization [facility] Address [address] [address] Phone Care Team Providers Care Cager Operator Name Role Phone Shruthi Patel MD Primary Care Provider [phone] Allergies Active Allergy Reactions Criticality Noted Date Comments Lisinopril 08/04/2020 Medications levothyroxine sodium (TIROSINT) 75 MCG capsule Take 1 capsule by mouth 1 (one) time each day Active simvastatin (ZOCOR) 20 MG tablet Take 1 tablet by mouth 1 (one) time each day Active potassium chloride 10 MEQ CR tablet Take 30 mEq by mouth 1 (one) time each day 07/17/2024 Active Multiple Vitamins-Minera ls (CENTRUM SILVER PO) Take by mouth Active hydrALAZINE 50 MG tabletIndicatio ns:Chronic kidney disease stage 2,Hypertensive disorder Take 1 tablet (50 mg total) by mouth every morning and evening 180 tablet 3 10/03/2024 Active olmesartan-hydr oCHLOROthiazide (BENICAR HCT) 40-25 MG per tabletIndicatio ns:Chronic kidney disease stage 2,Hypertensive disorder Take 1 tablet by mouth 1 (one) time each day 90 tablet 3 11/19/2024 6 Active Active Problems Problem Noted Date Diagnosed Date Chronic kidney disease stage 2 08/04/2020 Assessment & Plan (10/03/2023 10:12 PM EDT): Creat 0.83, eGFR 57 as of July 2023 Normal Lytes/Ca No Anemia Checking Urine alb/Creat ratio Cyst of kidney 08/04/2020 Hyperlipidemia 08/04/2020 Hypertensive disorder 08/04/2020 Assessment & Plan (10/03/2023 10:14 PM EDT): Blood pressure is well controlled Taking Hydralazine 50 mg BID and Olmesartan-HCZ 40-35 QD NO Edema Both of these medications renewed for patient today No med changes made Contact dermatitis 05/12/2020 Rash and other nonspecific skin eruption 020 Encounters Date Type Department Care Team Description 11/19/2024 Refill [facility] [address] [address] Crystal Packer Chronic kidney disease stage 2; Hypertensive disorder from Last 3 Months Family History Medical History Relation Comments Hypertension [...] Sign Reading Time Taken Comments Blood Pressure 122/80 10/03/2024 10:49 AM EDT Pulse 76 10/03/2024 10:49 AM EDT Temperature - - Respiratory Rate - - Oxygen Saturation 98% 10/03/2024 10:49 AM EDT Inhaled Oxygen Concentration - - Weight 83.5 kg (184 lb) 10/03/2024 10:49 AM EDT Height 154.9 cm (5' 1 ) 04/07/2020 12:00 PM EST Body Mass Index 34.77 04/07/2020 12:00 PM EST Plan of Treatment Upcoming Encounters Date Type Department Care Team (Late st Contact Info) Description 10/02/2025 10:30 AM EDT Office Visit [facility] [address] [address] Jenny Deng ARNP [address] [address] Health Maintenance Due Date Last Done Comments Pneumococcal Vaccine: 50+ Ye ars (1 of 2 - PCV) 1966 Influenza Vaccine (#1) 2025 Hepatitis B Vaccine Aged Out No longe r eligible based on patient's age to complete this topic Insurance Member Subscriber Plan / Payer (Ef fective 2020-Present) Name:Mona Adams Relation to Subscriber:Self Name:Mona Adams Payer ID:[id number] (NAIC) Type:Not on file Address: [place] [phone] Care Teams Cager Operator Relationship Specialty Start Date End Date Shruthi Patel MD [address] [place] [address] PCP - General 05/26/20
[2025-02-07 10:25] LABS: MANUAL DIFF FLAG NO
[2025-02-07 10:31] LABS: Hematocrit 39.4 % (37.0-47.0); Hemoglobin 12.7 g/dl (12.0-16.0); Imm Gran Abs Auto 0.03 X10*3/uL (0.00-0.03); Imm Gran Pct Auto 0.4 % (0.0-0.4); Lymphocytes Absolute Auto 1.4 X10*3/uL (1.2-4.9); Mean Corpuscular HGB Conc 32.2 g/dl (31.0-35.0); Mean Corpuscular Hemoglobin 28.2 pg (27.0-33.0); Mean Corpuscular Volume 87.4 fL (80.0-98.0); NRBC Abs Auto 0.000 X10*3/uL (0.0-0.012); NRBC Pct Auto 0.0 /100WBC (0.0-0.2); Platelet Count 312 X10*3/uL (160-400); Red Blood Count 4.51 X10*6/uL (4.20-5.50); White Blood Count 7.2 X10*3/uL (4.8-10.8)
[2025-02-07 11:08] LABS: Microalbum/Creatinine Ratio Ur 6.7 ug/mg cr (<30)
[2025-02-07 11:13] LABS: Alanine Aminotransferase 16 U/L (0-31); Albumin Level 4.0 g/dL (3.5-5.0); Alkaline Phosphatase 65 U/L (39-117); Anion Gap 10 (12-20); Aspartate Amino Transferase 31 U/L (5-31); Blood Urea Nitrogen 21 mg/dL (9-16); Calcium 9.6 mg/dL (8.4-10.2); Carbon Dioxide 27 mmol/L (22-29); Chloride 108 mmol/L (96-108); Cholesterol 162 mg/dL (<200); Estimated Glomerular Filt Rate 58; HDL Cholesterol 46 mg/dL (>40); Potassium 3.2 mmol/L (3.3-5.1); Sodium 142 mmol/L (135-145); Total Protein 6.8 g/dL (6.5-8.0); Triglycerides 157 mg/dL (<150)
== END 2025-02-07 06:10 | disposition home or self-care (01) ==
LOC: HO.HMGCLDS 06:09
PROVIDERS: PCP Internal Medicine; Visit Provider Internal Medicine
DX: Z00.00 Encounter for general adult medical examination without abnormal findings (principal); N18.9 Chronic kidney disease, unspecified; R73.9 Hyperglycemia, unspecified; E03.9 Hypothyroidism, unspecified; E78.5 Hyperlipidemia, unspecified
CPT/HCPCS: 36415; 80053; 80061; 82043; 82570; 83036; 84443; 85025

== ENCOUNTER 2025-02-08 11:23 | Outpatient (AMB) | payer MEDICARE, SELFPAY ==
--- NOTE | 2025-02-08 11:53 | A.OFFPC_ITS ---
Vital Signs 02/08/25 11:54 Height 5 ft 1 in Weight 184 lb BMI 34.8 BP 118/74 Blood Pressure Location Lt brachial Position Sitting Respiration 18 Pulse 67 Pulse Source Pulse Oximeter Temp 98.1 F Temp Source Oral Pulse Oximetry (%) 97 Oxygen Delivery Method Room Air Intake Visit Reasons: PE - see comments Intake Note: Pt is here today for PE. Allergies amlodipine Allergy (Unknown, Verified 02/08/25 11:55) edema lisinopril Allergy (Unknown, Verified 02/08/25 11:55) Cough hydrochlorothiazide (Maxzide) Adverse Reaction (Intermediate, Verified 02/08/25 11:55) Urinary incontinence triamterene (Maxzide) Adverse Reaction (Unknown, Verified 02/08/25 11:55) urinary incontinence, increased urination Medication List - Last Reconciled 02/08/25 by Shruthi Patel MD acetaminophen 650 mg (2 x 325 mg) PO Q6H PRN 30 days amoxicillin 2,000 mg (4 x 500 mg) PO ONCE 1 day estradiol 0.01%(0.1mg/gram) (Estrace) 1 g vaginal 3XW hydralazine 50 mg PO BID ketoconazole 2% 1 appl topical DAILY levothyroxine 75 mcg PO QAM multivitamin 1 tab PO DAILY olmesartan-hydrochlorothiazide 40-25 mg 1 tab PO DAILY potassium chloride ER (K-Tab) 20 mEq PO BID simvastatin 20 mg PO BEDTIME Tobacco use date assessed: 02/08/25 Fall risk assessment: No Falls in past year Last assessed Fall Risk: 02/08/25 Dental Screening Dental Screen Date: 07/23/24 HPI PE - see comments HPI Details Pt presents for PE. PFSH Medical History Osteoarthritis of left knee Arthritis Skin cancer Epidermal cyst Urinary frequency Knee pain Chronic kidney disease (CKD) Thyroid nodule Hypothyroidism Renal cyst Hematuria, microscopic Hyperlipidemia Hypertension Surgical History History of knee replacement History of excision of epidermal inclusion cyst (~09/29/22) H/O colonoscopy Family History Father Unknown family medical history Mother Unknown family medical history Social History (Reviewed 02/08/25 @ 12:07 by Jennifer Morton [facility]) Household Members: None Housing: House Are you a primary college and career counselor to a significant other at home: No Do you presently have visiting nurse or other home services: No Alcohol intake: never Patient Tobacco Use Status: Never used Tobacco e-Cigarette/Vaping Use: Never Used service: No Current occupational status: retired Current occupation: right handed Cognitive needs: No Hearing needs: No Vision needs: Yes Questionnaire PHQ-9 Over the last 2 weeks, how often have you been bothered by any of the following problems? 1. Little interest or pleasure in doing things: not at all 2. Feeling down, depressed, or hopeless: not at all 3. Trouble falling or staying asleep, or sleeping too much: not at all 4. Feeling tired or having little energy: not at all 5. Poor appetite or overeating: not at all 6. Feeling bad about yourself - or that you are a failure or have let yourself or your family down: not at all 7. Trouble concentrating on things, such as reading the newspaper or watching television: not at all 8. Moving or speaking so slowly that other people could have noticed. Or the opposite - being so fidgety or restless that you have been moving around a lot more than usual: not at all 9. Thoughts that you would be better off or of hurting yourself in some way: not at all Total score: 0 Depression Screening Interpretation: Negative Depression Screening Done: Yes Source: Developed by Drs. Kamran Lowe, Manda Leslie, Issac Banks and colleagues, with an educational delaney from [employer]. Thrive Questionnaire Date Thrive assessed: 07/16/24 I am a: Patient What is your living situation today?: I have a steady place to live Within the past 12 months, did the food you bought not last and you didn't have the money to get more?: Never true Within the past 12 months, did you worry whether your food would run out before you got money to buy more?: I choose not to answer this question Do you have trouble paying for medicines?: No Do you have trouble getting transportation to medical appointments?: No Do you have trouble paying your heating and electricity bill?: No Do you have trouble taking care of your child, family member or friend?: No Do you have trouble with day-to-day activities such as bathing, preparing meals, shopping, managing finances, etc.?: No Are you currently unemployed and looking for a job?: No Are you interested in more education?: No Please select the resources that you would like help with: None Currently or been in a relationship where the following occur: No concerns reported THRIVE Score: 0 RENATO-7 AMB Questionnaire RENATO-7 Date RENATO - 7 assessed: 07/23/24 Feeling nervous, anxious, or on edge: 0 = Not at all Not being able to stop or control worryin = Not at all Worrying too much about different things: 0 = Not at all Trouble relaxin = Not at all Being so restless that it is hard to sit still: 0 = Not at all Becoming easily annoyed or irritable: 0 = Not at all Feeling afraid as if something awful might happen: 0 = Not at all Total RENATO-7 score (0-4 normal; 5-9 mild; 10-14 moderate; 15-21 severe): 0 Source: Developed by Drs. Kamran Lowe, Manda Leslie, Issac Banks and colleagues, with an educational delaney from [employer]. Review of Systems Const All systems reviewed & are unremarkable except as noted in HPI and below Eyes Reports no additional complaints ENT Reports no additional complaints Card Reports no additional complaints Resp Reports no additional complaints GI Reports no additional complaints Reports no additional complaints Musc Reports no additional complaints Neuro Reports no additional complaints Physical exam (Primary Care) Vital Signs: Last Vital Signs Temp 98.1 F 02/08/25 11:54 Pulse 67 02/08/25 11:54 Resp 18 02/08/25 11:54 BP 118/74 02/08/25 11:54 Pulse Ox 97 02/08/25 11:54 Oxygen Delivery Method Room Air 02/08/25 11:54 BMI result Body Mass Index 34.8 Tobacco/Smoking Status: Tobacco use Status Tobacco use date assessed 02/08/25 02/08/25 12:05 Patient Tobacco Use Status Never used Tobacco 02/08/25 12:05 e-Cigarette/Vaping Use Never Used 02/08/25 12:05 PHQ-9: PHQ-9 Score PHQ-9: Total score 0 02/08/25 12:35 Depression Screening Interpretation: Negative Thrive Assessment: Date of Thrive Assessment Date Thrive assessed 07/16/24 02/08/25 12:05 Currently or been in a relationship where the following occur: No concerns reported Const General: no acute distress HENMT Head: Yes normal to inspection Face and sinus: Yes normal facial exam Mouth: Normal oral and palatal mucosa present Eyes General: appearance normal, both eyes and all related structures Neck Neck: Yes no lymphadenopathy and Yes supple Resp Effort & Inspection: normal respiratory effort Auscultation: clear to auscultation bilaterally Cardio Rhythm: regular rhythm Heart sounds: S1 normal heart sound present and S2 normal heart sound present GI Inspection: Yes normal to inspection Palpation (GI): Soft to palpation Percussion: Yes normal to percussion Auscultation: normal bowel sounds Extrem General: Yes no clubbing, cyanosis or edema Coding Level of Care Code Est Pt Prev Care >65y(55113) Diagnoses Hypertension I10 Hyperlipidemia E78.5 Hyperglycemia R73.9 Hypothyroidism E03.9 Assessment & Plan Assessment & Plan (1) Hypertension: Comment: f/u nephrology Code(s): I10 - Essential (primary) hypertension Category: Medical Plan: cont meds (2) Hyperlipidemia: Code(s): E78.5 - Hyperlipidemia, unspecified Category: Medical Plan: cont statin (3) Hyperglycemia: Code(s): R73.9 - Hyperglycemia, unspecified Category: Medical Plan: A1C 5.9, ADA diet regular exercise and weight loss discussed with the patient follow-up in 3 months with a fasting labs before (4) Hypothyroidism: Code(s): E03.9 - Hypothyroidism, unspecified Category: Medical Plan: cont Levothyroxine Orders: Orders Magnesium 1 Week I10 - Essential (primary) hypertension Comprehensive [place]. Panel Fast 3 Months E78.5 - Hyperlipidemia, unspecified, I10 - Essential (primary) hypertension, R73.9 - Hyperglycemia, unspecified Hemoglobin A1c 3 Months E78.5 - Hyperlipidemia, unspecified, I10 - Essential (primary) hypertension, R73.9 - Hyperglycemia, unspecified Basic Metabolic Panel 1 Week I10 - Essential (primary) hypertension Complete Blood Count Auto Diff 3 Months E78.5 - Hyperlipidemia, unspecified, I10 - Essential (primary) hypertension, R73.9 - Hyperglycemia, unspecified Medications: New potassium chloride ER (K-Tab) 20 mEq PO BID 180 tabs 0RF Discontinued potassium chloride ER Discontinued Reason: Doctor's Order 30 mEq (3 x 10 mEq) PO DAILY 270 tabs 2RF
[2025-02-08 11:54] VITALS: BP 118/74; PULSE 67; RESP 18; TEMP 36.7; O2SAT 97; BMI 34.8
--- OUTSIDE RECORDS SUMMARY | 2025-02-08 13:13 | XMS_ITS | Encounter Summary ---
Author Organization [facility] Address [address] [place] [address] Phone Care Team Providers Care Slitting Machine Feeder Name Role Phone Shruthi Patel MD Primary Care Provider [phone] Reason for Visit * Reason Comments Med Refill Encounter Details Date Type Department Care Team (Late Contact Info) Description 08/15/2023 Refill [facility] [address] [place] [address] Allen Manley MD Social History [...] Visit [facility] [address] [address] Jenny Deng ARNP [address] [facility] [address] [place] [address] documented as of this encounter Visit Diagnoses Not on filedocumented in this encounter Care Teams Slitting Machine Feeder Relationship Specialty Start Date End Date Shruthi Patel MD [address] [place] [address] PCP - General 05/26/20 documented as of this encounter
--- OUTSIDE RECORDS SUMMARY | 2025-02-08 13:14 | XMS_ITS | Clinical Summary ---
Author Organization [facility] Address [address] [address] Phone Care Team Providers Care Torts Law Professor Name Role Phone Shruthi Patel MD Primary Care Provider [phone] Allergies Active Allergy Reactions Criticality Noted Date [...] 11/19/2024 [facility] [address] [address] Crystal Packer Chronic kidney disease [...] Office Visit [facility] [address] [address] Jenny Deng ARNP [address] [address] Health Maintenance Due Date Last [...] Payer ID:[id number] (NAIC) Type:Not on file Address: [place] [phone] Care Teams Torts Law Professor Relationship Specialty Start Date End Date Shruthi Patel MD [address] [place] [address] PCP - General 05/26/20
== END 2025-02-08 12:49 | disposition home or self-care (01) ==
LOC: HO.HMCC 11:24
PROVIDERS: PCP Internal Medicine; Visit Provider Internal Medicine
DX: I10 Essential (primary) hypertension (principal); E78.5 Hyperlipidemia, unspecified; R73.9 Hyperglycemia, unspecified; E03.9 Hypothyroidism, unspecified; Z00.00 Encounter for general adult medical examination without abnormal findings

== ENCOUNTER → 2025-02-08 11:23 | Outpatient (BNVA) | payer MEDICARE, SELFPAY | PROVIDERS: PCP Internal Medicine; Visit Provider Internal Medicine | DX: Z00.00 Encounter for general adult medical examination without abnormal findings (principal); I10 Essential (primary) hypertension; E78.5 Hyperlipidemia, unspecified; R73.9 Hyperglycemia, unspecified; E03.9 Hypothyroidism, unspecified | CPT/HCPCS: 96127; 99397 ==

== ENCOUNTER 2025-02-14 10:05 | Outpatient (REF) | payer MEDICARE, SELFPAY ==
--- OUTSIDE RECORDS SUMMARY | 2025-02-14 11:26 | XMS_ITS | Clinical Summary ---
Author Organization [facility] Address [address] [address] Phone Care Team Providers Care Tooth Clerk Name Role Phone Shruthi Patel MD Primary Care Provider [phone] Allergies Active Allergy Reactions Criticality Noted Date [...] 11/19/2024 [facility] [address] [address] Crystal Packer Chronic kidney disease [...] Office Visit [facility] [address] [address] Jenny Deng ARNP [address] [address] Health Maintenance Due Date Last [...] Payer ID:[id number] (NAIC) Type:Not on file Address: [place] [phone] Care Teams Tooth Clerk Relationship Specialty Start Date End Date Shruthi Patel MD [address] [place] [address] PCP - General 05/26/20
--- OUTSIDE RECORDS SUMMARY | 2025-02-14 11:26 | XMS_ITS | Encounter Summary ---
Author Organization [facility] Address [address] [place] [address] Phone Care Team Providers Care Plasterer Tender Name Role Phone Shruthi Patel MD Primary Care Provider [phone] Reason for Visit * Reason Comments Med Refill Encounter Details Date Type Department Care Team (Late Contact Info) Description 08/15/2023 Refill [facility] [address] [place] [address] Allen Manley MD Social History [...] Visit [facility] [address] [facility] [address] [place] [address] Jenny Deng ARNP [address] [facility] [address] [place] [address] documented as of this encounter Visit Diagnoses Not on filedocumented in this encounter Care Teams Plasterer Tender Relationship Specialty Start Date End Date Shruthi Patel MD [address] [place] [address] PCP - General 05/26/20 documented as of this encounter
[2025-02-14 13:58] LABS: Anion Gap 12 (12-20); Blood Urea Nitrogen 19 mg/dL (9-16); Calcium 10.4 mg/dL (8.4-10.2); Carbon Dioxide 26 mmol/L (22-29); Chloride 107 mmol/L (96-108); Estimated Glomerular Filt Rate > 60; Magnesium 2.2 mg/dL (1.6-2.6); Potassium 3.8 mmol/L (3.3-5.1); Sodium 141 mmol/L (135-145)
== END 2025-02-14 10:06 | disposition home or self-care (01) ==
LOC: HO.HMGCLDS 10:05
PROVIDERS: PCP Internal Medicine; Visit Provider Internal Medicine
DX: I10 Essential (primary) hypertension (principal)
CPT/HCPCS: 36415; 80048; 83735